=== PATIENT | female | born 1950 | race American Indian/Alaskan Native ===

== ENCOUNTER 2017-09-06 07:02 | Inpatient (IN) | payer OTHER, MEDICARE ==
[2017-09-06 08:30] LABS: Basophils % (Auto) 0.9 % (0.0-1.8); Eosinophils % (Auto) 1.7 % (0.0-4.3); Hematocrit 35.7 % (30.3-42.9); Hemoglobin 11.8 gm/dl (10.1-14.3); Mean Corpuscular HGB Conc 33 % (30-34); Mean Corpuscular Hemoglobin 31 pg (28-32); Mean Corpuscular Volume 94 fl (79-97); Platelet Count 200 K/mm3 (140-440); Red Cell Distribution Width 15.8 % (13.2-15.2); White Blood Count 3.1 K/mm3 (4.5-11.0)
--- NOTE | 2017-09-06 08:43 | Emergency Department Report ---
ED General Adult HPI - General Chief complaint: Abdominal Pain Stated complaint: ABDOMINAL PAIN Time Seen by Provider: 09/06/17 08:34 Source: patient Mode of arrival: Wheelchair Limitations: No Limitations - History of Present Illness Initial comments: Patient is a 67-year-old female who gets dialysis Wednesday, Wednesday and Fridays who presents with right-sided pain. Patient states that she missed her last 2 dialysis treatments. She was going out of town however her dialysis center canceled her treatments. Patient states that her chest and abdomen hurt it as a 5 out 10 as an achy type of pain as intermittent and it doesn't radiate nothing makes it better or worse. She denies having any shortness of breath or any nausea or vomiting. Patient has a right Port-A-Cath. Her acute care occupational therapist is at [facility] Dr. Villalba. - Related Data Allergies Allergy/AdvReac Type Severity Reaction Status Date / Time No Known Allergies Allergy Verified 09/06/17 07:54 ED Review of Systems ROS: Stated complaint: ABDOMINAL PAIN Other details as noted in HPI Constitutional: denies: chills, fever Eyes: denies: eye pain, eye discharge, vision change ENT: denies: ear pain, throat pain Respiratory: denies: cough, shortness of breath, wheezing Cardiovascular: chest pain. denies: palpitations Endocrine: no symptoms reported Gastrointestinal: abdominal pain. denies: nausea, diarrhea Genitourinary: denies: urgency, dysuria, discharge Musculoskeletal: myalgia. denies: back pain, joint swelling, arthralgia Skin: denies: rash, lesions Neurological: denies: headache, weakness, paresthesias Psychiatric: denies: anxiety, depression Hematological/Lymphatic: denies: easy bleeding, easy bruising ED Past Medical Hx - Past Medical History Previous Medical History?: Yes Hx Hypertension: Yes Hx Diabetes: Yes Hx Renal Disease: Yes - Surgical History Past Surgical History?: Yes Additional Surgical History: left arm - Social History Smoking Status: Never Smoker Substance Use Type: None ED Physical Exam - General Limitations: No Limitations General appearance: alert, in no apparent distress - Head Head exam: Present: atraumatic, normocephalic - Eye Eye exam: Present: normal appearance - ENT ENT exam: Present: mucous membranes moist - Neck Neck exam: Present: normal inspection - Respiratory Respiratory exam: Present: normal lung sounds bilaterally. Absent: respiratory distress - Cardiovascular Cardiovascular Exam: Present: other (right chest port ). Absent: systolic murmur, diastolic murmur, rubs, gallop - GI/Abdominal GI/Abdominal exam: Present: soft, normal bowel sounds - Extremities Exam Extremities exam: Present: normal inspection - Back Exam Back exam: Present: normal inspection - Neurological Exam Neurological exam: Present: alert, oriented X3 - Psychiatric Psychiatric exam: Present: normal affect, normal mood - Skin Skin exam: Present: warm, dry, intact, normal color. Absent: rash ED Course Vital Signs 09/06/17 09/06/17 09/06/17 07:47 08:52 08:53 Temperature 98.2 F 98.0 F Pulse Rate 63 61 Respiratory 16 16 16 Rate Blood Pressure 149/59 Blood Pressure 169/58 [Right] O2 Sat by Pulse 100 98 98 Oximetry ED Medical Decision Making - Lab Data Result diagrams: 09/06/17 08:11 09/06/17 15:44 Lab Results 09/06/17 09/06/17 09/06/17 Range/Units 08:02 08:11 08:11 WBC 3.1 L (4.5-11.0) K/mm3 RBC 3.80 (3.65-5.03) M/mm3 Hgb 11.8 (10.1-14.3) gm/dl Hct 35.7 (30.3-42.9) % MCV 94 (79-97) fl MCH 31 (28-32) pg MCHC 33 (30-34) % RDW 15.8 H (13.2-15.2) % Plt Count 200 (140-440) K/mm3 Lymph % (Auto) 31.5 (13.4-35.0) % [place] % (Auto) 9.2 H (0.0-7.3) % Eos % (Auto) 1.7 (0.0-4.3) % Baso % (Auto) 0.9 (0.0-1.8) % Lymph # 1.0 L (1.2-5.4) K/mm3 [place] # 0.3 (0.0-0.8) K/mm3 Eos # 0.1 (0.0-0.4) K/mm3 Baso # 0.0 (0.0-0.1) K/mm3 Seg Neutrophils % 56.7 (40.0-70.0) % Seg Neutrophils # 1.8 (1.8-7.7) K/mm3 Sodium 137 (137-145) mmol/L Potassium 6.2 H* (3.6-5.0) mmol/L Chloride 101.1 (98-107) mmol/L Carbon Dioxide 20 L (22-30) mmol/L Anion Gap 22 mmol/L BUN 102 H (7-17) mg/dL Creatinine 8.3 H (0.7-1.2) mg/dL Estimated GFR 6 ml/min BUN/Creatinine Ratio 12 % Glucose 108 H (65-100) mg/dL POC Glucose 112 H (70-105) Calcium 9.2 (8.4-10.2) mg/dL Total Bilirubin 0.20 (0.1-1.2) mg/dL AST 14 (5-40) units/L ALT 12 (7-56) units/L Alkaline Phosphatase 91 (35-129) units/L Total Protein 7.1 (6.3-8.2) g/dL Albumin 3.9 (3.9-5) g/dL Albumin/Globulin Ratio 1.2 % Lipase 96 H (13-60) units/L - EKG Data -: EKG Interpreted by Nd - EKG Data 09/06/17 16:29 EKG shows sinus rhythm left atrial enlargement and LVH T-wave abnormalities in inferior leads no ST segment elevation. No axis deviation. - Radiology Data Radiology results: report reviewed, image reviewed Chest x-ray: Shows No acute cardiopulmonary disease - Medical Decision Making Chief medical diagnosis: Hyperkalemia secondary to missed dialysis Differential medical diagnosis: Pneumonia, hyponatremia, non-STEMI EKG, IV insulin, calcium gluconate IV dextrose, albuterol, CBC, CMP and nephrology consult. Patient has hyperkalemia she has no EKG Changes I will admit patient to the hospitalist service and I have also consulted 's group due to patient needing emergent dialysis. Patient has a life-threatening condition and will need to be admitted to the hospital. Discussed with patient and she agrees with plan. Critical Care Time: Yes (50) Critical care time in (mins) excluding proc time.: 50 Critical care attestation.: If time is entered above; I have spent that time in minutes in the direct care of this critically ill patient, excluding procedure time. critcal care time spent at patient's bedside 35 minutes Critical care time spent with consultants 10 minutes Critical care time spent looking over lab findings 5 minutes critical care time spent with patient's family 0 minutes Critical care time spent with looking over old medical records 0 minutes ED Disposition Clinical Impression: Hyperkalemia, ESRD (end stage renal disease), Myalgia, Elevated troponin Chest pain Qualifiers: Chest pain type: unspecified Qualified Code(s): R07.9 - Chest pain, unspecified Abdominal pain Qualifiers: Abdominal location: generalized Qualified Code(s): R10.84 - Generalized abdominal pain Disposition: OP ADMIT IP TO THIS HOSP Is pt being admited?: Yes Does the pt Need Aspirin: No Condition: Stable Instructions: Chest Pain (ED), Abdominal Pain (ED) Referrals: PRIMARY CARE,MD [Primary Care Provider] - 3-5 Days
[2017-09-06 08:48] LABS: Albumin 3.9 g/dL (3.9-5); Albumin/Globulin Ratio 1.2 %; Bilirubin,Total 0.2 mg/dL (0.1-1.2); Calcium 9.2 mg/dL (8.4-10.2); Chloride 101.1 mmol/L (98-107); Total Protein 7.1 g/dL (6.3-8.2)
[2017-09-06 08:57] LABS: Potassium 6.2 mmol/L (3.6-5.0)
[2017-09-06] MEDS ORDERED: D50W (25GM) Vial IV ONE (09:06)
[2017-09-06] MEDS ORDERED: CALCIUM GLUCONATE 2,000 MG in NACL 0.9% 100 ML IV ONE (10:00)
[2017-09-06] MEDS ORDERED: SUBLIMAZE IV ONE (11:09)
--- NOTE | 2017-09-06 13:33 | XRay Report ---
Portable chest: Pain. There is a vas catheter entering the right jugular vein with tips in the SVC. There is a vascular clip located in the soft tissues of the proximal left arm. The heart is normal in size. The lungs are clear with no vascular congestion. No prior study for comparison. Impression: No acute findings.
[2017-09-06] MEDS ORDERED: PROVENTIL IH ONE ×2 (14:42→16:18)
[2017-09-06] MEDS ORDERED: D50W (25GM) Syringe IV ONE (16:20)
--- NOTE | 2017-09-06 16:41 | Consultation ---
History of Present Illness - Reason for Consult Consult date: 09/06/17 end stage renal disease Requesting physician: SAI TIDWELL - History of Present Illness Patient is a 67-year-old female who gets dialysis Wednesday, Wednesday and Fridays who presents with right-sided pain. Patient states that she missed her last 2 dialysis treatments. She was going out of town however her dialysis center canceled her treatments. Patient states that her chest and abdomen hurt it as a 5 out 10 as an achy type of pain as intermittent and it doesn't radiate nothing makes it better or worse. She denies having any shortness of breath or any nausea or vomiting. Patient has a right Port-A-Cath. She undergoes hemodialysis at [facility] under our care. She however missed her last 2 treatments as she was out of town. Patient states that there was some mixup in the dialysis arrangements that were made Past History Past Medical History: diabetes, dialysis, hypertension Past Surgical History: Other (history of creation of AV fistula) Social history: other (denies smoking or drinking) Family history: no significant family history Medications and Allergies Allergies Allergy/AdvReac Type Severity Reaction Status Date / Time No Known Allergies Allergy Verified 09/06/17 07:54 Active Meds: Active Medications Dextrose (D50w (25gm) Syringe) 50 ml IV ONCE ONE Stop: 09/06/17 16:21 Heparin Sodium (Porcine) (Heparin) 5,000 unit SUB-Q Q12HR DAYAMI Review of Systems All systems: negative (negative except as noted above) Exam - Vital Signs Vital signs: Vital Signs Temp Pulse Resp BP Pulse Ox 98.2 F 63 16 149/59 100 09/06/17 07:47 09/06/17 07:47 09/06/17 07:47 09/06/17 07:47 09/06/17 07:47 - General Appearance General appearance: well-developed, well-nourished, appears stated age EENT: PERRL, mucous membranes moist Neck: Present: neck supple, trachea midline, Other (right IJ PermCath in place) . Absent: JVD/HJR, Masses Respiratory: Clear to Ascultation Heart: regular, normal heart rate Gastrointestinal: Present: normal, normoactive bowel sounds Integumentary: no rash, other (no edema. AV fistula in her left upper arm. Good bruit and thrill. Covered with a dressing) Results - Lab Results 09/06/17 08:11 09/06/17 15:44 Most recent lab results Calcium 9.2 mg/dL (8.4-10.2) 09/06/17 08:11 Assessment and Plan Impression * End-stage renal disease on maintenance hemodialysis * Hyperkalemia * Hypertension * Diabetes * Anemia secondary to ESRD Recommendations * Shall arrange for hemodialysis as soon as possible * Medical management of hyperkalemia * Adjust diet and metastases for ESRD state * Epogen with dialysis * No IV, BP of any venipuncture access arm * Binders with diet * Avoid nephrotoxins * Thank you very much for the consultation. Shall follow along with you
--- NOTE | 2017-09-06 17:17 | History and Physical Report ---
History of Present Illness Chief complaint: chest pain and sob History of present illness: Patient is a 67-year-old female who gets dialysis Wednesday, Wednesday and Fridays who presents with right-sided chest pain. Patient states that she missed her last 2 dialysis treatments. She went out of town for . Says was scheduled for dialysis with a dialysis center there. However there was an error with her paperwork and scheduling. Therefore she missed her last 2 dialysis sessions. She presents with chest pain in the right side, which is dull constant and shortness of breath. She states that this is typical way for her to feel when she misses dialysis, she has now been on dialysis for 1 year Past History Past Medical History: diabetes, dialysis, hypertension Past Surgical History: Other (history of creation of AV fistula) Social history: other (denies smoking or drinking) Family history: no significant family history Medications and Allergies Allergies Allergy/AdvReac Type Severity Reaction Status Date / Time No Known Allergies Allergy Verified 09/06/17 07:54 Home Medications Medication Instructions Recorded Confirmed Last Taken Type Amlodipine Besylate/Benazepril 1 each PO DAILY 09/06/17 09/06/17 09/05/17 History [Amlodipine-Benazepril 10-20 mg] Loratadine [Claritin] 10 mg PO DAILY 09/06/17 09/06/17 09/05/17 History Active Meds: Active Medications Heparin Sodium (Porcine) (Heparin) 5,000 unit SUB-Q Q12HR DAYAMI Review of Systems All systems: negative Constitutional: fatigue Cardiovascular: chest pain Exam - Constitutional Vitals: Temp Pulse Resp BP Pulse Ox 98.0 F 61 16 169/58 98 09/06/17 08:52 09/06/17 08:52 09/06/17 08:53 09/06/17 08:52 09/06/17 08:53 General appearance: Present: no acute distress, well-nourished - EENT Eyes: Present: PERRL ENT: hearing intact, clear oral mucosa - Neck Neck: Present: supple, normal ROM - Respiratory Respiratory effort: normal Respiratory: bilateral: CTA - Cardiovascular Heart Sounds: Present: S1 & S2. Absent: rub, click - Extremities Extremities: pulses symmetrical, No edema Peripheral Pulses: within normal limits - Abdominal General gastrointestinal: Present: soft, non-tender, non-distended, normal bowel sounds Female genitourinary: Present: normal - Integumentary Integumentary: Present: clear, warm, dry - Musculoskeletal Musculoskeletal: gait normal, strength equal bilaterally - Psychiatric Psychiatric: appropriate mood/affect, intact judgment & insight - Neurologic Neurologic: CNII-XII intact, moves all extremities Results - Labs CBC & Chem 7: 09/06/17 08:11 09/06/17 15:44 Labs: Laboratory Last Values WBC 3.1 K/mm3 (4.5-11.0) L 09/06/17 08:11 RBC 3.80 M/mm3 (3.65-5.03) 09/06/17 08:11 Hgb 11.8 gm/dl (10.1-14.3) 09/06/17 08:11 Hct 35.7 % (30.3-42.9) 09/06/17 08:11 MCV 94 fl (79-97) 09/06/17 08:11 MCH 31 pg (28-32) 09/06/17 08:11 MCHC 33 % (30-34) 09/06/17 08:11 RDW 15.8 % (13.2-15.2) H 09/06/17 08:11 Plt Count 200 K/mm3 (140-440) 09/06/17 08:11 Lymph % (Auto) 31.5 % (13.4-35.0) 09/06/17 08:11 [place] % (Auto) 9.2 % (0.0-7.3) H 09/06/17 08:11 Eos % (Auto) 1.7 % (0.0-4.3) 09/06/17 08:11 Baso % (Auto) 0.9 % (0.0-1.8) 09/06/17 08:11 Lymph # 1.0 K/mm3 (1.2-5.4) L 09/06/17 08:11 [place] # 0.3 K/mm3 (0.0-0.8) 09/06/17 08:11 Eos # 0.1 K/mm3 (0.0-0.4) 09/06/17 08:11 Baso # 0.0 K/mm3 (0.0-0.1) 09/06/17 08:11 Seg Neutrophils % 56.7 % (40.0-70.0) 09/06/17 08:11 Seg Neutrophils # 1.8 K/mm3 (1.8-7.7) 09/06/17 08:11 Sodium 137 mmol/L (137-145) 09/06/17 08:11 Potassium 6.6 mmol/L (3.6-5.0) H* 09/06/17 15:44 Chloride 101.1 mmol/L (98-107) 09/06/17 08:11 Carbon Dioxide 20 mmol/L (22-30) L 09/06/17 08:11 Anion Gap 22 mmol/L 09/06/17 08:11 BUN 102 mg/dL (7-17) H 09/06/17 08:11 Creatinine 8.3 mg/dL (0.7-1.2) H 09/06/17 08:11 Estimated GFR 6 ml/min 09/06/17 08:11 BUN/Creatinine Ratio 12 % 09/06/17 08:11 Glucose 108 mg/dL (65-100) H 09/06/17 08:11 POC Glucose 112 (70-105) H 09/06/17 08:02 Calcium 9.2 mg/dL (8.4-10.2) 09/06/17 08:11 Total Bilirubin 0.20 mg/dL (0.1-1.2) 09/06/17 08:11 AST 14 units/L (5-40) 09/06/17 08:11 ALT 12 units/L (7-56) 09/06/17 08:11 Alkaline Phosphatase 91 units/L (35-129) 09/06/17 08:11 Troponin T 0.056 ng/mL (0.00-0.029) H 09/06/17 15:44 Total Protein 7.1 g/dL (6.3-8.2) 09/06/17 08:11 Albumin 3.9 g/dL (3.9-5) 09/06/17 08:11 Albumin/Globulin Ratio 1.2 % 09/06/17 08:11 Triglycerides 183 mg/dL (2-149) H 09/06/17 15:44 Cholesterol 201 mg/dL (50-199) H 09/06/17 15:44 LDL Cholesterol Direct 110 mg/dL (50-130) 09/06/17 15:44 HDL Cholesterol 55 mg/dL (40-59) 09/06/17 15:44 Cholesterol/HDL Ratio 3.65 % 09/06/17 15:44 Lipase 96 units/L (13-60) H 09/06/17 08:11 - Imaging and Cardiology Chest x-ray: image reviewed (no acute findings) Assessment and Plan Assessment and plan: 67F who missed two HD sessions who shows up with CP and hyperkalemia Hyperkalemia Has a medically treated, patient is to go for dialysis today, nephrology input appreciated End-stage renal disease Continue hemodialysis per nephrology Hypertensive urgency IV when necessary blood pressure medications, restart home medications -Hopefully blood pressure should improve after dialysis Diabetes Sliding scale insulin Atypical chest pain Was likely due to uremia and hyperkalemia and hypertensive urgency Has now resolved, outpatient stress test as patient has not had one recently DVT prophylaxis Heparin subcutaneous
[2017-09-06] MEDS ORDERED: APRESOLINE IV PRN (17:18)
[2017-09-06] MEDS ORDERED: MILK OF MAGNESIA PO PRN (17:20)
[2017-09-06] MEDS ORDERED: DULCOLAX PR PRN (17:20)
[2017-09-06] MEDS ORDERED: ZOFRAN IV PRN (17:20)
[2017-09-06] MEDS ORDERED: CATHFLO IV STA (20:10)
[2017-09-06] MEDS ORDERED: WATER FOR INJ (PF) 10 ML ONE (20:16)
[2017-09-06] MEDS ORDERED: CATHFLO ONE (20:16)
[2017-09-06] MEDS ORDERED: NACL 0.9 (PRIMING MACHINE ONLY DIALYSIS) MC ONE ×2 (20:29→22:24)
[2017-09-06] MEDS ORDERED: HEPARIN IV PRN (23:22)
[2017-09-07] MEDS: HEPARIN SUB-Q SCH ×3 (01:49→21:00)
--- NOTE | 2017-09-07 08:16 | Progress Note ---
<CARLEYMAISHA CURTIS - Last Filed: 09/07/17 16:08> Assessment and Plan Assessment and plan: Patient is a 67-year-old female who gets dialysis Wednesday, Wednesday and Fridays who presents with right-sided chest pain. End-stage renal disease on dialysis Patient will have urgent dialysis today Nephrology consulted Hypertension urgency Optimize home antihypertensive meds IV hydralazine for SBP>160 Closely monitor blood pressure Diabetes mellitus Accu-Chek before meals and at bedtime Sliding scale insulin/NovoLog ADA carbohydrate consistent diet Hyperkalemia Patient has hemodialysis today that will correct it Closely monitor electrolytes. Atypical chest pain Was likely due to uremia and hyperkalemia and hypertensive urgency Has now resolved, outpatient stress test as patient has not had one recently DVT prophylaxis Heparin subcutaneous History Interval history: She denies having pain at present. Labs and nursing notes reviewed. Hospitalist Physical - Constitutional Vitals: Temp Pulse Resp BP Pulse Ox 98.2 F 74 18 152/68 99 09/07/17 04:34 09/07/17 04:34 09/07/17 04:34 09/07/17 04:34 09/07/17 04:34 General appearance: Present: no acute distress, well-nourished - EENT Eyes: Present: PERRL ENT: hearing intact - Neck Neck: Present: supple - Respiratory Respiratory effort: normal Respiratory: bilateral: CTA - Cardiovascular Rhythm: regular Heart Sounds: Present: S1 & S2 - Abdominal General gastrointestinal: soft, non-tender - Integumentary Integumentary: Present: clear, warm, dry - Psychiatric Psychiatric: appropriate mood/affect - Neurologic Neurologic: moves all extremities - Allied Health Allied health notes reviewed: nursing Results - Labs CBC & Chem 7: 09/06/17 08:11 09/06/17 15:44 Labs: Laboratory Last Values WBC 3.1 K/mm3 (4.5-11.0) L 09/06/17 08:11 RBC 3.80 M/mm3 (3.65-5.03) 09/06/17 08:11 Hgb 11.8 gm/dl (10.1-14.3) 09/06/17 08:11 Hct 35.7 % (30.3-42.9) 09/06/17 08:11 MCV 94 fl (79-97) 09/06/17 08:11 MCH 31 pg (28-32) 09/06/17 08:11 MCHC 33 % (30-34) 09/06/17 08:11 RDW 15.8 % (13.2-15.2) H 09/06/17 08:11 Plt Count 200 K/mm3 (140-440) 09/06/17 08:11 Lymph % (Auto) 31.5 % (13.4-35.0) 09/06/17 08:11 [place] % (Auto) 9.2 % (0.0-7.3) H 09/06/17 08:11 Eos % (Auto) 1.7 % (0.0-4.3) 09/06/17 08:11 Baso % (Auto) 0.9 % (0.0-1.8) 09/06/17 08:11 Lymph # 1.0 K/mm3 (1.2-5.4) L 09/06/17 08:11 [place] # 0.3 K/mm3 (0.0-0.8) 09/06/17 08:11 Eos # 0.1 K/mm3 (0.0-0.4) 09/06/17 08:11 Baso # 0.0 K/mm3 (0.0-0.1) 09/06/17 08:11 Seg Neutrophils % 56.7 % (40.0-70.0) 09/06/17 08:11 Seg Neutrophils # 1.8 K/mm3 (1.8-7.7) 09/06/17 08:11 Sodium 137 mmol/L (137-145) 09/06/17 08:11 Potassium 6.6 mmol/L (3.6-5.0) H* 09/06/17 15:44 Chloride 101.1 mmol/L (98-107) 09/06/17 08:11 Carbon Dioxide 20 mmol/L (22-30) L 09/06/17 08:11 Anion Gap 22 mmol/L 09/06/17 08:11 BUN 102 mg/dL (7-17) H 09/06/17 08:11 Creatinine 8.3 mg/dL (0.7-1.2) H 09/06/17 08:11 Estimated GFR 6 ml/min 09/06/17 08:11 BUN/Creatinine Ratio 12 % 09/06/17 08:11 Glucose 108 mg/dL (65-100) H 09/06/17 08:11 POC Glucose 112 (70-105) H 09/06/17 08:02 Calcium 9.2 mg/dL (8.4-10.2) 09/06/17 08:11 Total Bilirubin 0.20 mg/dL (0.1-1.2) 09/06/17 08:11 AST 14 units/L (5-40) 09/06/17 08:11 ALT 12 units/L (7-56) 09/06/17 08:11 Alkaline Phosphatase 91 units/L (35-129) 09/06/17 08:11 Troponin T 0.056 ng/mL (0.00-0.029) H 09/06/17 15:44 Total Protein 7.1 g/dL (6.3-8.2) 09/06/17 08:11 Albumin 3.9 g/dL (3.9-5) 09/06/17 08:11 Albumin/Globulin Ratio 1.2 % 09/06/17 08:11 Triglycerides 183 mg/dL (2-149) H 09/06/17 15:44 Cholesterol 201 mg/dL (50-199) H 09/06/17 15:44 LDL Cholesterol Direct 110 mg/dL (50-130) 09/06/17 15:44 HDL Cholesterol 55 mg/dL (40-59) 09/06/17 15:44 Cholesterol/HDL Ratio 3.65 % 09/06/17 15:44 Lipase 96 units/L (13-60) H 09/06/17 08:11 <FARAZ JOHNSTON E - Last Filed: 09/07/17 17:11> Assessment and Plan Assessment and plan: I saw and evaluated the patient. I agree with the findings and the plan of care as documented in the Nurse Practitioner's~note, with the following corrections and additions. Discussed with patient. multiple social issues, apparently has not been going to dialysis due to social issues, case management and school social worker assisting. Hospitalist Physical - Constitutional Vitals: Temp Pulse Resp BP Pulse Ox 97.4 F L 68 18 140/62 100 09/07/17 07:55 09/07/17 13:07 09/07/17 07:55 09/07/17 13:07 09/07/17 13:07 Results - Labs CBC & Chem 7: 09/06/17 08:11 09/06/17 15:44 Labs: Laboratory Last Values WBC 3.1 K/mm3 (4.5-11.0) L 09/06/17 08:11 RBC 3.80 M/mm3 (3.65-5.03) 09/06/17 08:11 Hgb 11.8 gm/dl (10.1-14.3) 09/06/17 08:11 Hct 35.7 % (30.3-42.9) 09/06/17 08:11 MCV 94 fl (79-97) 09/06/17 08:11 MCH 31 pg (28-32) 09/06/17 08:11 MCHC 33 % (30-34) 09/06/17 08:11 RDW 15.8 % (13.2-15.2) H 09/06/17 08:11 Plt Count 200 K/mm3 (140-440) 09/06/17 08:11 Lymph % (Auto) 31.5 % (13.4-35.0) 09/06/17 08:11 [place] % (Auto) 9.2 % (0.0-7.3) H 09/06/17 08:11 Eos % (Auto) 1.7 % (0.0-4.3) 09/06/17 08:11 Baso % (Auto) 0.9 % (0.0-1.8) 09/06/17 08:11 Lymph # 1.0 K/mm3 (1.2-5.4) L 09/06/17 08:11 [place] # 0.3 K/mm3 (0.0-0.8) 09/06/17 08:11 Eos # 0.1 K/mm3 (0.0-0.4) 09/06/17 08:11 Baso # 0.0 K/mm3 (0.0-0.1) 09/06/17 08:11 Seg Neutrophils % 56.7 % (40.0-70.0) 09/06/17 08:11 Seg Neutrophils # 1.8 K/mm3 (1.8-7.7) 09/06/17 08:11 Sodium 137 mmol/L (137-145) 09/06/17 08:11 Potassium 6.6 mmol/L (3.6-5.0) H* 09/06/17 15:44 Chloride 101.1 mmol/L (98-107) 09/06/17 08:11 Carbon Dioxide 20 mmol/L (22-30) L 09/06/17 08:11 Anion Gap 22 mmol/L 09/06/17 08:11 BUN 102 mg/dL (7-17) H 09/06/17 08:11 Creatinine 8.3 mg/dL (0.7-1.2) H 09/06/17 08:11 Estimated GFR 6 ml/min 09/06/17 08:11 BUN/Creatinine Ratio 12 % 09/06/17 08:11 Glucose 108 mg/dL (65-100) H 09/06/17 08:11 POC Glucose 144 (70-105) H 09/07/17 07:45 Calcium 9.2 mg/dL (8.4-10.2) 09/06/17 08:11 Total Bilirubin 0.20 mg/dL (0.1-1.2) 09/06/17 08:11 AST 14 units/L (5-40) 09/06/17 08:11 ALT 12 units/L (7-56) 09/06/17 08:11 Alkaline Phosphatase 91 units/L (35-129) 09/06/17 08:11 Troponin T 0.056 ng/mL (0.00-0.029) H 09/06/17 15:44 Total Protein 7.1 g/dL (6.3-8.2) 09/06/17 08:11 Albumin 3.9 g/dL (3.9-5) 09/06/17 08:11 Albumin/Globulin Ratio 1.2 % 09/06/17 08:11 Triglycerides 183 mg/dL (2-149) H 09/06/17 15:44 Cholesterol 201 mg/dL (50-199) H 09/06/17 15:44 LDL Cholesterol Direct 110 mg/dL (50-130) 09/06/17 15:44 HDL Cholesterol 55 mg/dL (40-59) 09/06/17 15:44 Cholesterol/HDL Ratio 3.65 % 09/06/17 15:44 Lipase 96 units/L (13-60) H 09/06/17 08:11 Urine Color Yellow (Yellow) 09/07/17 14:20 Urine Turbidity Clear (Clear) 09/07/17 14:20 Urine pH 6.0 (5.0-7.0) 09/07/17 14:20 Ur Specific [place] 1.013 (1.003-1.030) 09/07/17 14:20 Urine Protein 100 mg/dl mg/dL (Negative) 09/07/17 14:20 Urine Glucose (UA) 50 mg/dL (Negative) 09/07/17 14:20 Urine Ketones Neg mg/dL (Negative) 09/07/17 14:20 Urine Blood Neg (Negative) 09/07/17 14:20 Urine Nitrite Neg (Negative) 09/07/17 14:20 Urine Bilirubin Neg (Negative) 09/07/17 14:20 Urine Urobilinogen < 2.0 mg/dL (<2.0) 09/07/17 14:20 Ur Leukocyte Esterase Neg (Negative) 09/07/17 14:20 Urine WBC (Auto) 1.0 /HPF (0.0-6.0) 09/07/17 14:20 Urine RBC (Auto) 1.0 /HPF (0.0-6.0) 09/07/17 14:20 U Epithel Cells (Auto) < 1.0 /HPF (0-13.0) 09/07/17 14:20 Urine Bacteria (Auto) 1+ /HPF (Negative) 09/07/17 14:20 Urine Mucus Few /HPF 09/07/17 14:20
[2017-09-07] MEDS: CLARITIN PO SCH (09:14)
[2017-09-07] MEDS: NORVASC PO SCH (09:15)
--- NOTE | 2017-09-07 09:35 | Progress Note ---
Assessment and Plan Impression * End-stage renal disease on maintenance hemodialysis * Hyperkalemia * Hypertension * Diabetes * Anemia secondary to ESRD Recommendations * Patient had hemodialysis yesterday. Required activities as her perm catheter did not function properly * Today's labs are still pending. Shall plan for additional dialysis treatment today as her numbers were quite high yesterday * Adjust diet and metastases for ESRD state * Epogen with dialysis * No IV, BP of any venipuncture access arm * Binders with diet * Avoid nephrotoxins * Okay to discharge patient home after dialysis today Subjective Date of service: 09/07/17 Interval history: Patient feels better today. Her cough is improved. Denies any nausea or vomiting Objective - Vital Signs Vital signs: Vital Signs - 12hr 09/06/17 09/06/17 09/06/17 21:45 22:00 22:15 Temperature Pulse Rate 67 70 69 Respiratory Rate Blood Pressure 154/88 159/83 158/81 Blood Pressure [Right] O2 Sat by Pulse Oximetry 09/06/17 09/06/17 09/06/17 22:30 22:45 23:00 Temperature Pulse Rate 70 70 85 Respiratory Rate Blood Pressure 135/73 130/63 118/62 Blood Pressure [Right] O2 Sat by Pulse Oximetry 09/06/17 09/06/17 09/06/17 23:15 23:30 23:45 Temperature Pulse Rate 79 79 71 Respiratory Rate Blood Pressure 132/69 144/80 154/76 Blood Pressure [Right] O2 Sat by Pulse Oximetry 09/07/17 09/07/17 09/07/17 00:00 00:15 01:10 Temperature 97.5 F L 97.3 F L Pulse Rate 72 69 68 Respiratory 18 16 Rate Blood Pressure 123/67 110/58 144/62 Blood Pressure [Right] O2 Sat by Pulse 100 Oximetry 09/07/17 09/07/17 09/07/17 01:25 04:34 07:44 Temperature 98.2 F Pulse Rate 70 74 69 Respiratory 18 Rate Blood Pressure 152/68 Blood Pressure [Right] O2 Sat by Pulse 99 100 Oximetry 09/07/17 07:55 Temperature 97.4 F L Pulse Rate 69 Respiratory 18 Rate Blood Pressure Blood Pressure 145/67 [Right] O2 Sat by Pulse 98 Oximetry - General Appearance General appearance: well-developed, well-nourished, appears stated age EENT: PERRL, mucous membranes moist Neck: no JVD, no thyromegaly, other (right IJ PermCath in place) Respiratory: Present: Clear to Ascultation Cardiology: regular, normal heart rate Gastrointestinal: normal, normoactive bowel sounds Integumentary: no rash, other (the fistula in her left upper arm. Covered with dressing. Bruit audible. No edema) - Lab 09/06/17 08:11 09/06/17 15:44 Most recent lab results Calcium 9.2 mg/dL (8.4-10.2) 09/06/17 08:11
[2017-09-07] MEDS ORDERED: NACL 0.9% 100 ML IV PRN (10:00)
[2017-09-07 14:43] LABS: Bacteria,Urine 1+ /HPF (Negative); Bilirubin,Urine NEG (Negative); Blood,Urine NEG (Negative); Ketones,Urine NEG (Negative); Leukocyte Esterase,Urine NEG (Negative); Mucus,Urine FEW /HPF; Nitrite,Urine NEG (Negative); Urobilinogen,Urine < 2.0 mg/dL (<2.0)
--- NOTE | 2017-09-07 16:03 | Discharge Summary ---
<FARAZ JOHNSTON - Last Filed: 09/09/17 16:55> Providers - Providers Date of Admission: 09/06/17 16:21 Attending physician: FARAZ JOHNSTON MD 09/06/17 15:07 Consult to Physician [CONS] Urgent Consulting Provider: MERCEDES BRADSHAW Reason For Exam: Hyperkalemia Notified:: Yes Primary care physician: EGG GATHERER Hospitalization Condition: Stable Disposition: DC-01 TO HOME OR SELFCARE Time spent for discharge: 35 mins Exam - Constitutional Vitals: Temp Pulse Resp BP Pulse Ox 98.5 F 80 18 137/66 98 09/09/17 08:38 09/09/17 10:38 09/09/17 08:38 09/09/17 10:38 09/08/17 23:44 Plan Activity: advance as tolerated, fall precautions Diet: renal Special Instructions: record daily weights, record daily BP diary Follow up with: HEIDE BANEGAS MD [Primary Care Provider] - 3-5 Days BRYANT DUNCAN MD [Staff Physician] - 7 Days Prescriptions: Cetirizine HCl [ZyrTEC] 10 mg PO DAILY #20 capsule <MAISHA COSBY - Last Filed: 09/09/17 19:57> Providers - Providers Date of Admission: 09/06/17 16:21 Attending physician: FARAZ JOHNSTON MD 09/06/17 15:07 Consult to Physician [CONS] Urgent Consulting Provider: MERCEDES BRADSHAW Reason For Exam: Hyperkalemia Notified:: Yes Primary care physician: EGG GATHERER Hospitalization Reason for admission: right-sided chest pain. Hospital course: Patient is a 67-year-old female who gets dialysis Wednesday, Wednesday and Fridays who presents with right-sided chest pain. Patient diagnosed with End- stage renal disease on dialysis, Hypertension urgency, Diabetes mellitus, Hyperkalemia and Atypical chest pain. She received emergent dialysis, during which excess fluid was removed, and her hyperkalemia corrected with HD, she was restarted on the rest of her meds. Patient is clinically improved no chest discomfort at present time. Patient advised to follow-up with her primary care provider. Discharge Diagnosed End-stage renal disease on dialysis Hypertension urgency Diabetes mellitus Hyperkalemia Atypical chest pain due to ERSD and hypertension urgency Time spent for discharge: 33 minutes Core Measure Documentation - Palliative Care Palliative Care/ Comfort Measures: Not Applicable - Core Measures Any of the following diagnoses?: none Exam - Constitutional Vitals: Temp Pulse Resp BP Pulse Ox 97.4 F L 68 18 140/62 100 09/07/17 07:55 09/07/17 13:07 09/07/17 07:55 09/07/17 13:07 09/07/17 13:07 General appearance: Present: no acute distress - EENT Eyes: Present: PERRL ENT: hearing intact - Neck Neck: Present: supple - Respiratory Respiratory effort: normal Respiratory: bilateral: CTA - Cardiovascular Rhythm: regular Heart Sounds: Present: S1 & S2 - Abdominal General gastrointestinal: Present: soft, non-tender Female genitourinary: Present: deferred - Rectal Rectal Exam: deferred - Integumentary Integumentary: Present: clear, warm, dry - Musculoskeletal Musculoskeletal: strength equal bilaterally - Psychiatric Psychiatric: appropriate mood/affect - Neurologic Neurologic: moves all extremities - Allied Health Allied health notes reviewed: nursing Plan Activity: advance as tolerated, fall precautions
[2017-09-07] MEDS ORDERED: HEPARIN ONE (17:36)
[2017-09-07 18:03] LABS: Calcium 7.8 mg/dL (8.4-10.2); Chloride 90.6 mmol/L (98-107)
[2017-09-07 18:10] LABS: Potassium 2.9 mmol/L (3.6-5.0)
[2017-09-07] MEDS ORDERED: NACL 0.9 (PRIMING MACHINE ONLY DIALYSIS) MC ONE (18:45)
[2017-09-07] MEDS: TYLENOL PO PRN (20:55)
[2017-09-07 21:32] LABS: Chloride 90.6 mmol/L (98-107); Potassium 4.3 mmol/L (3.6-5.0)
[2017-09-08 07:27] LABS: Calcium 8.1 mg/dL (8.4-10.2); Chloride 95.5 mmol/L (98-107); Potassium 4.8 mmol/L (3.6-5.0)
[2017-09-08] MEDS: NORVASC PO SCH (09:48)
[2017-09-08] MEDS: HEPARIN SUB-Q SCH ×2 (09:48→22:52)
[2017-09-08] MEDS: CLARITIN PO SCH (09:48)
[2017-09-08] MEDS: TYLENOL PO PRN ×2 (09:50→14:57)
--- NOTE | 2017-09-08 12:14 | Progress Note ---
Assessment and Plan Impression * End-stage renal disease on maintenance hemodialysis * Hyperkalemia * Hypertension * Diabetes * Anemia secondary to ESRD Recommendations * Patient had hemodialysis yesterday. * Her electrolytes and volume status are acceptable today. No need for hemodialysis again today * Shall plan to keep her on her outpatient days as Wednesday's, Wednesday's and Wednesday's * Epogen with dialysis * No IV, BP of any venipuncture access arm * Binders with diet * Avoid nephrotoxins Subjective Date of service: 09/08/17 Interval history: Patient feels better this morning. Her cough has not resolved. Denies any shortness of breath. Objective - Vital Signs Vital signs: Vital Signs - 12hr 09/08/17 09/08/17 05:19 07:43 Temperature 98.6 F 98.4 F Pulse Rate 67 72 Respiratory 19 18 Rate Blood Pressure 102/46 111/58 O2 Sat by Pulse 99 99 Oximetry - General Appearance General appearance: well-developed, well-nourished, appears stated age EENT: PERRL, mucous membranes moist Neck: no JVD, no thyromegaly, no carotid bruit, supple, other (right IJ PermCath in place) Respiratory: Present: Clear to Ascultation Cardiology: regular, normal heart rate Gastrointestinal: normal, normoactive bowel sounds Integumentary: no rash, other (AV graft in her left upper arm. Good bruit and thrill) - Lab 09/06/17 08:11 09/08/17 06:12 Most recent lab results Calcium 8.1 mg/dL (8.4-10.2) L 09/08/17 06:12
--- NOTE | 2017-09-08 13:06 | Progress Note ---
<MAISHA COSBY - Last Filed: 09/08/17 16:12> Assessment and Plan Assessment and plan: Patient is a 67-year-old female who gets dialysis Wednesday, Wednesday and Fridays who presents with right-sided chest pain. End-stage renal disease on dialysis Patient schedule TTS for HD Managed by Nephrology Disposition patient was scheduled to go home today but she appealed her discharge. Hypertension urgency Optimize home antihypertensive meds IV hydralazine for SBP>160 Closely monitor blood pressure Diabetes mellitus Accu-Chek before meals and at bedtime Sliding scale insulin/NovoLog ADA carbohydrate consistent diet Hyperkalemia Resolved Closely monitor electrolytes. Atypical chest pain Resolved; currently denies any chest pain Most likely due to hypertensive urgency or ESRD DVT prophylaxis Heparin subcutaneous History Interval history: Patient denies chest pain, shortness of breath or dizziness. Labs and nursing notes reviewed. Hospitalist Physical - Constitutional Vitals: Temp Pulse Resp BP Pulse Ox 98.4 F 72 18 111/58 99 09/08/17 07:43 09/08/17 07:43 09/08/17 07:43 09/08/17 07:43 09/08/17 07:43 General appearance: Present: no acute distress, well-nourished - EENT Eyes: Present: PERRL ENT: hearing intact - Neck Neck: Present: supple - Respiratory Respiratory effort: normal Respiratory: bilateral: CTA - Cardiovascular Rhythm: regular Heart Sounds: Present: S1 & S2 - Abdominal General gastrointestinal: soft, non-tender - Integumentary Integumentary: Present: clear, warm, dry - Psychiatric Psychiatric: appropriate mood/affect - Neurologic Neurologic: moves all extremities - Allied Health Allied health notes reviewed: nursing Results - Labs CBC & Chem 7: 09/06/17 08:11 09/08/17 06:12 Labs: Laboratory Last Values WBC 3.1 K/mm3 (4.5-11.0) L 09/06/17 08:11 RBC 3.80 M/mm3 (3.65-5.03) 09/06/17 08:11 Hgb 11.8 gm/dl (10.1-14.3) 09/06/17 08:11 Hct 35.7 % (30.3-42.9) 09/06/17 08:11 MCV 94 fl (79-97) 09/06/17 08:11 MCH 31 pg (28-32) 09/06/17 08:11 MCHC 33 % (30-34) 09/06/17 08:11 RDW 15.8 % (13.2-15.2) H 09/06/17 08:11 Plt Count 200 K/mm3 (140-440) 09/06/17 08:11 Lymph % (Auto) 31.5 % (13.4-35.0) 09/06/17 08:11 [place] % (Auto) 9.2 % (0.0-7.3) H 09/06/17 08:11 Eos % (Auto) 1.7 % (0.0-4.3) 09/06/17 08:11 Baso % (Auto) 0.9 % (0.0-1.8) 09/06/17 08:11 Lymph # 1.0 K/mm3 (1.2-5.4) L 09/06/17 08:11 [place] # 0.3 K/mm3 (0.0-0.8) 09/06/17 08:11 Eos # 0.1 K/mm3 (0.0-0.4) 09/06/17 08:11 Baso # 0.0 K/mm3 (0.0-0.1) 09/06/17 08:11 Seg Neutrophils % 56.7 % (40.0-70.0) 09/06/17 08:11 Seg Neutrophils # 1.8 K/mm3 (1.8-7.7) 09/06/17 08:11 Sodium 138 mmol/L (137-145) 09/08/17 06:12 Potassium 4.8 mmol/L (3.6-5.0) 09/08/17 06:12 Chloride 95.5 mmol/L (98-107) L 09/08/17 06:12 Carbon Dioxide 25 mmol/L (22-30) 09/08/17 06:12 Anion Gap 22 mmol/L 09/08/17 06:12 BUN 41 mg/dL (7-17) H 09/08/17 06:12 Creatinine 5.3 mg/dL (0.7-1.2) H 09/08/17 06:12 Estimated GFR 10 ml/min 09/08/17 06:12 BUN/Creatinine Ratio 8 % 09/08/17 06:12 Glucose 132 mg/dL (65-100) H 09/08/17 06:12 POC Glucose 136 (70-105) H 09/08/17 07:50 Calcium 8.1 mg/dL (8.4-10.2) L 09/08/17 06:12 Total Bilirubin 0.20 mg/dL (0.1-1.2) 09/06/17 08:11 AST 14 units/L (5-40) 09/06/17 08:11 ALT 12 units/L (7-56) 09/06/17 08:11 Alkaline Phosphatase 91 units/L (35-129) 09/06/17 08:11 Troponin T 0.056 ng/mL (0.00-0.029) H 09/06/17 15:44 Total Protein 7.1 g/dL (6.3-8.2) 09/06/17 08:11 Albumin 3.9 g/dL (3.9-5) 09/06/17 08:11 Albumin/Globulin Ratio 1.2 % 09/06/17 08:11 Triglycerides 183 mg/dL (2-149) H 09/06/17 15:44 Cholesterol 201 mg/dL (50-199) H 09/06/17 15:44 LDL Cholesterol Direct 110 mg/dL (50-130) 09/06/17 15:44 HDL Cholesterol 55 mg/dL (40-59) 09/06/17 15:44 Cholesterol/HDL Ratio 3.65 % 09/06/17 15:44 Lipase 96 units/L (13-60) H 09/06/17 08:11 Urine Color Yellow (Yellow) 09/07/17 14:20 Urine Turbidity Clear (Clear) 09/07/17 14:20 Urine pH 6.0 (5.0-7.0) 09/07/17 14:20 Ur Specific [place] 1.013 (1.003-1.030) 09/07/17 14:20 Urine Protein 100 mg/dl mg/dL (Negative) 09/07/17 14:20 Urine Glucose (UA) 50 mg/dL (Negative) 09/07/17 14:20 Urine Ketones Neg mg/dL (Negative) 09/07/17 14:20 Urine Blood Neg (Negative) 09/07/17 14:20 Urine Nitrite Neg (Negative) 09/07/17 14:20 Urine Bilirubin Neg (Negative) 09/07/17 14:20 Urine Urobilinogen < 2.0 mg/dL (<2.0) 09/07/17 14:20 Ur Leukocyte Esterase Neg (Negative) 09/07/17 14:20 Urine WBC (Auto) 1.0 /HPF (0.0-6.0) 09/07/17 14:20 Urine RBC (Auto) 1.0 /HPF (0.0-6.0) 09/07/17 14:20 U Epithel Cells (Auto) < 1.0 /HPF (0-13.0) 09/07/17 14:20 Urine Bacteria (Auto) 1+ /HPF (Negative) 09/07/17 14:20 Urine Mucus Few /HPF 09/07/17 14:20 <FARAZ JOHNSTON - Last Filed: 09/09/17 07:25> Assessment and Plan Assessment and plan: I saw and evaluated the patient. I agree with the findings and the plan of care as documented in the Nurse Practitioner's~note, with the following corrections and additions. Per patient does not have access to her home or medications and also needs to await son arriving from [place] tomorrow. she denies any chest pain, nausea, vomiting, diarrhea. Hospitalist Physical - Constitutional Vitals: Temp Pulse Resp BP Pulse Ox 98.2 F 73 17 129/56 98 09/08/17 23:44 09/08/17 23:44 09/08/17 23:44 09/08/17 23:44 09/08/17 23:44 Results - Labs CBC & Chem 7: 09/06/17 08:11 09/08/17 06:12 Labs: Laboratory Last Values WBC 3.1 K/mm3 (4.5-11.0) L 09/06/17 08:11 RBC 3.80 M/mm3 (3.65-5.03) 09/06/17 08:11 Hgb 11.8 gm/dl (10.1-14.3) 09/06/17 08:11 Hct 35.7 % (30.3-42.9) 09/06/17 08:11 MCV 94 fl (79-97) 09/06/17 08:11 MCH 31 pg (28-32) 09/06/17 08:11 MCHC 33 % (30-34) 09/06/17 08:11 RDW 15.8 % (13.2-15.2) H 09/06/17 08:11 Plt Count 200 K/mm3 (140-440) 09/06/17 08:11 Lymph % (Auto) 31.5 % (13.4-35.0) 09/06/17 08:11 [place] % (Auto) 9.2 % (0.0-7.3) H 09/06/17 08:11 Eos % (Auto) 1.7 % (0.0-4.3) 09/06/17 08:11 Baso % (Auto) 0.9 % (0.0-1.8) 09/06/17 08:11 Lymph # 1.0 K/mm3 (1.2-5.4) L 09/06/17 08:11 [place] # 0.3 K/mm3 (0.0-0.8) 09/06/17 08:11 Eos # 0.1 K/mm3 (0.0-0.4) 09/06/17 08:11 Baso # 0.0 K/mm3 (0.0-0.1) 09/06/17 08:11 Seg Neutrophils % 56.7 % (40.0-70.0) 09/06/17 08:11 Seg Neutrophils # 1.8 K/mm3 (1.8-7.7) 09/06/17 08:11 Sodium 138 mmol/L (137-145) 09/08/17 06:12 Potassium 4.8 mmol/L (3.6-5.0) 09/08/17 06:12 Chloride 95.5 mmol/L (98-107) L 09/08/17 06:12 Carbon Dioxide 25 mmol/L (22-30) 09/08/17 06:12 Anion Gap 22 mmol/L 09/08/17 06:12 BUN 41 mg/dL (7-17) H 09/08/17 06:12 Creatinine 5.3 mg/dL (0.7-1.2) H 09/08/17 06:12 Estimated GFR 10 ml/min 09/08/17 06:12 BUN/Creatinine Ratio 8 % 09/08/17 06:12 Glucose 132 mg/dL (65-100) H 09/08/17 06:12 POC Glucose 211 (70-105) H 09/08/17 21:13 Calcium 8.1 mg/dL (8.4-10.2) L 09/08/17 06:12 Total Bilirubin 0.20 mg/dL (0.1-1.2) 09/06/17 08:11 AST 14 units/L (5-40) 09/06/17 08:11 ALT 12 units/L (7-56) 09/06/17 08:11 Alkaline Phosphatase 91 units/L (35-129) 09/06/17 08:11 Troponin T 0.056 ng/mL (0.00-0.029) H 09/06/17 15:44 Total Protein 7.1 g/dL (6.3-8.2) 09/06/17 08:11 Albumin 3.9 g/dL (3.9-5) 09/06/17 08:11 Albumin/Globulin Ratio 1.2 % 09/06/17 08:11 Triglycerides 183 mg/dL (2-149) H 09/06/17 15:44 Cholesterol 201 mg/dL (50-199) H 09/06/17 15:44 LDL Cholesterol Direct 110 mg/dL (50-130) 09/06/17 15:44 HDL Cholesterol 55 mg/dL (40-59) 09/06/17 15:44 Cholesterol/HDL Ratio 3.65 % 09/06/17 15:44 Lipase 96 units/L (13-60) H 09/06/17 08:11 Urine Color Yellow (Yellow) 09/07/17 14:20 Urine Turbidity Clear (Clear) 09/07/17 14:20 Urine pH 6.0 (5.0-7.0) 09/07/17 14:20 Ur Specific [place] 1.013 (1.003-1.030) 09/07/17 14:20 Urine Protein 100 mg/dl mg/dL (Negative) 09/07/17 14:20 Urine Glucose (UA) 50 mg/dL (Negative) 09/07/17 14:20 Urine Ketones Neg mg/dL (Negative) 09/07/17 14:20 Urine Blood Neg (Negative) 09/07/17 14:20 Urine Nitrite Neg (Negative) 09/07/17 14:20 Urine Bilirubin Neg (Negative) 09/07/17 14:20 Urine Urobilinogen < 2.0 mg/dL (<2.0) 09/07/17 14:20 Ur Leukocyte Esterase Neg (Negative) 09/07/17 14:20 Urine WBC (Auto) 1.0 /HPF (0.0-6.0) 09/07/17 14:20 Urine RBC (Auto) 1.0 /HPF (0.0-6.0) 09/07/17 14:20 U Epithel Cells (Auto) < 1.0 /HPF (0-13.0) 09/07/17 14:20 Urine Bacteria (Auto) 1+ /HPF (Negative) 09/07/17 14:20 Urine Mucus Few /HPF 09/07/17 14:20
[2017-09-09 08:58] VITALS: BP 137/66
[2017-09-09] MEDS ORDERED: NACL 0.9% 100 ML IV PRN (10:10)
--- NOTE | 2017-09-09 10:10 | Progress Note ---
Assessment and Plan Impression * End-stage renal disease on maintenance hemodialysis * Hyperkalemia * Hypertension * Diabetes * Anemia secondary to ESRD Recommendations * Patient is clinically euvolemic and her hyperkalemia has been corrected . * Continue maintenance dialysis on Mondays, Wednesdays and Fridays * Epogen with dialysis * No IV, BP of any venipuncture access arm * Binders with diet * Avoid nephrotoxins * Add Zyrtec for her sinus symptoms Subjective Date of service: 09/09/17 Interval history: Patient is comfortable this morning. Her cough is better. She still however complains of some sinus drainage. No shortness of breath. Objective - Vital Signs Vital signs: Vital Signs - 12hr 09/08/17 09/09/17 23:44 08:38 Temperature 98.2 F 98.5 F Pulse Rate 73 Respiratory 17 18 Rate Blood Pressure 129/56 137/66 O2 Sat by Pulse 98 Oximetry - General Appearance General appearance: well-developed, well-nourished, appears stated age EENT: PERRL, mucous membranes moist Neck: no JVD, no thyromegaly, no carotid bruit, supple, other (right IJ PermCath in place) Respiratory: Present: Clear to Ascultation Cardiology: regular, normal heart rate, S1S2, no murmurs Gastrointestinal: normal, normoactive bowel sounds Integumentary: no rash, other (no edema. AV graft in the left upper arm. Good bruit and thrill) - Lab 09/06/17 08:11 09/08/17 06:12 Most recent lab results Calcium 8.1 mg/dL (8.4-10.2) L 09/08/17 06:12
[2017-09-09] MEDS: NORVASC PO SCH (10:38)
[2017-09-09] MEDS: HEPARIN SUB-Q SCH (10:39)
[2017-09-09] MEDS ORDERED: CLARITIN PO SCH (11:00)
--- NOTE | 2017-09-09 16:53 | Progress Note ---
History Interval history: Patient denies chest pain, shortness of breath or having any discomfort at present time. Hospitalist Physical - Constitutional Vitals: Temp Pulse Resp BP Pulse Ox 98.5 F 80 18 137/66 98 09/09/17 08:38 09/09/17 10:38 09/09/17 08:38 09/09/17 10:38 09/08/17 23:44 General appearance: Present: no acute distress, well-nourished - EENT Eyes: Present: PERRL ENT: hearing intact Results - Labs CBC & Chem 7: 09/06/17 08:11 09/08/17 06:12 Labs: Laboratory Last Values WBC 3.1 K/mm3 (4.5-11.0) L 09/06/17 08:11 RBC 3.80 M/mm3 (3.65-5.03) 09/06/17 08:11 Hgb 11.8 gm/dl (10.1-14.3) 09/06/17 08:11 Hct 35.7 % (30.3-42.9) 09/06/17 08:11 MCV 94 fl (79-97) 09/06/17 08:11 MCH 31 pg (28-32) 09/06/17 08:11 MCHC 33 % (30-34) 09/06/17 08:11 RDW 15.8 % (13.2-15.2) H 09/06/17 08:11 Plt Count 200 K/mm3 (140-440) 09/06/17 08:11 Lymph % (Auto) 31.5 % (13.4-35.0) 09/06/17 08:11 [place] % (Auto) 9.2 % (0.0-7.3) H 09/06/17 08:11 Eos % (Auto) 1.7 % (0.0-4.3) 09/06/17 08:11 Baso % (Auto) 0.9 % (0.0-1.8) 09/06/17 08:11 Lymph # 1.0 K/mm3 (1.2-5.4) L 09/06/17 08:11 [place] # 0.3 K/mm3 (0.0-0.8) 09/06/17 08:11 Eos # 0.1 K/mm3 (0.0-0.4) 09/06/17 08:11 Baso # 0.0 K/mm3 (0.0-0.1) 09/06/17 08:11 Seg Neutrophils % 56.7 % (40.0-70.0) 09/06/17 08:11 Seg Neutrophils # 1.8 K/mm3 (1.8-7.7) 09/06/17 08:11 Sodium 138 mmol/L (137-145) 09/08/17 06:12 Potassium 4.8 mmol/L (3.6-5.0) 09/08/17 06:12 Chloride 95.5 mmol/L (98-107) L 09/08/17 06:12 Carbon Dioxide 25 mmol/L (22-30) 09/08/17 06:12 Anion Gap 22 mmol/L 09/08/17 06:12 BUN 41 mg/dL (7-17) H 09/08/17 06:12 Creatinine 5.3 mg/dL (0.7-1.2) H 09/08/17 06:12 Estimated GFR 10 ml/min 09/08/17 06:12 BUN/Creatinine Ratio 8 % 09/08/17 06:12 Glucose 132 mg/dL (65-100) H 09/08/17 06:12 POC Glucose 156 (70-105) H 09/09/17 11:52 Calcium 8.1 mg/dL (8.4-10.2) L 09/08/17 06:12 Total Bilirubin 0.20 mg/dL (0.1-1.2) 09/06/17 08:11 AST 14 units/L (5-40) 09/06/17 08:11 ALT 12 units/L (7-56) 09/06/17 08:11 Alkaline Phosphatase 91 units/L (35-129) 09/06/17 08:11 Troponin T 0.056 ng/mL (0.00-0.029) H 09/06/17 15:44 Total Protein 7.1 g/dL (6.3-8.2) 09/06/17 08:11 Albumin 3.9 g/dL (3.9-5) 09/06/17 08:11 Albumin/Globulin Ratio 1.2 % 09/06/17 08:11 Triglycerides 183 mg/dL (2-149) H 09/06/17 15:44 Cholesterol 201 mg/dL (50-199) H 09/06/17 15:44 LDL Cholesterol Direct 110 mg/dL (50-130) 09/06/17 15:44 HDL Cholesterol 55 mg/dL (40-59) 09/06/17 15:44 Cholesterol/HDL Ratio 3.65 % 09/06/17 15:44 Lipase 96 units/L (13-60) H 09/06/17 08:11 Urine Color Yellow (Yellow) 09/07/17 14:20 Urine Turbidity Clear (Clear) 09/07/17 14:20 Urine pH 6.0 (5.0-7.0) 09/07/17 14:20 Ur Specific [place] 1.013 (1.003-1.030) 09/07/17 14:20 Urine Protein 100 mg/dl mg/dL (Negative) 09/07/17 14:20 Urine Glucose (UA) 50 mg/dL (Negative) 09/07/17 14:20 Urine Ketones Neg mg/dL (Negative) 09/07/17 14:20 Urine Blood Neg (Negative) 09/07/17 14:20 Urine Nitrite Neg (Negative) 09/07/17 14:20 Urine Bilirubin Neg (Negative) 09/07/17 14:20 Urine Urobilinogen < 2.0 mg/dL (<2.0) 09/07/17 14:20 Ur Leukocyte Esterase Neg (Negative) 09/07/17 14:20 Urine WBC (Auto) 1.0 /HPF (0.0-6.0) 09/07/17 14:20 Urine RBC (Auto) 1.0 /HPF (0.0-6.0) 09/07/17 14:20 U Epithel Cells (Auto) < 1.0 /HPF (0-13.0) 09/07/17 14:20 Urine Bacteria (Auto) 1+ /HPF (Negative) 09/07/17 14:20 Urine Mucus Few /HPF 09/07/17 14:20
== END 2017-09-09 19:30 | disposition home or self-care (01) | DRG 682 ==
LOC: ED 07:02 → 4A 16:21
PROVIDERS: ADMIT Internal Medicine; ATTEND Internal Medicine
PROC: 5A1D70Z Performance of Urinary Filtration, Intermittent, Less than 6 Hours Per Day (ICD-10-PCS; principal; 2017-09-06)
PROC: 5A1D70Z Performance of Urinary Filtration, Intermittent, Less than 6 Hours Per Day (ICD-10-PCS; 2017-09-07)
DX: I12.0 Hypertensive chronic kidney disease with stage 5 chronic kidney disease or end stage renal disease (principal); N18.6 End stage renal disease; I16.0 Hypertensive urgency; E87.5 Hyperkalemia; E11.22 Type 2 diabetes mellitus with diabetic chronic kidney disease; M79.1 Myalgia; D63.1 Anemia in chronic kidney disease
CPT/HCPCS: 36415; 71010; 80048; 80053; 80061; 81001; 82962; 83690; 84132; 84484; 85025; 93005; 93010; 96374; 96375; 96376; J0610; J1644; J1815; J2997; J3010; J7030

== ENCOUNTER 2018-10-16 03:09 | Inpatient (IN) | payer MEDICARE ==
[2018-10-16] MEDS ORDERED: NORCO 5/325 PO ONE (05:08)
[2018-10-16] MEDS ORDERED: ZOFRAN ODT PO ONE (05:10)
--- NOTE | 2018-10-16 07:45 | Emergency Department Report ---
ED Abdominal Pain HPI - General Chief Complaint: Abdominal Pain Stated Complaint: STOMACH AND BACK PAIN DUE TO COLON INFECTION Time Seen by Provider: 10/16/18 07:42 Source: patient, EMS Mode of arrival: Wheelchair Limitations: No Limitations - History of Present Illness Initial Comments: This is a 68 year old dialysis patient that is seen here yesterday for similar complaints. She was also thought perhaps to have colitis when she was recently hospitalized. A CT scan as per radiologist appears to be non-validating. The patient tells me that she has lower abdominal pain which she has has never really gone away. She stated that she felt too ill after yesterday's visit to go to dialysis as well as recommended. She believes that she is "dehydrated". She states that she has a lower abdominal and diffuse discomfort which is intermittent but persistent in nature for now over a week. She denies having any chronic opioid use requirement. However she does state that she wanted to get pain medication and Xanax from her doctor and [place] but he is out of the [place]. She gets dialyzed in [place]. I didn't ask her about her recent recurring choices to come to this facility. 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 Patient was found to be non-compliant and did not present to dialysis as per last ED visit plan on 10/14/18: Patient is a 68-year-old female who has a past medical history of his state renal disease on dialysis who is presenting with diffuse abdominal pain. Patient was admitted to the hospital on October 09 for presumed colitis. Patient states she never saw a vp product marketing while she was in the hospital she was discharged yesterday. Patient states she was unable to get any prescr iptions filled as of yet and her pain is worsened. Patient states pain is diffuse. Patient states 8 out of 10 in severity and sharp in nature. She says she has some intermittent crampiness as well. Patient denies fever nausea vomiting dysuria at this time. Patient states she does make urine still. - Related Data Home Medications Medication Instructions Recorded Confirmed Last Taken Loratadine [Claritin] 10 mg PO DAILY 09/06/17 10/09/18 09/05/17 Previous Rx's Medication Instructions Recorded Last Taken Type Cetirizine HCl [ZyrTEC] 10 mg PO DAILY #20 capsule 09/09/17 Unknown Rx Bisacodyl [Dulcolax tab] 10 mg PO QDAY PRN #30 tablet 12/09/17 Unknown Rx amLODIPine [Norvasc] 10 mg PO QDAY #30 tablet 12/09/17 Unknown Rx cloNIDine [Catapres] 0.1 mg PO Q12HR #60 tablet 12/09/17 Unknown Rx hydrALAZINE [Apresoline TAB] 100 mg PO TID #90 tab 12/09/17 Unknown Rx Bisacodyl [Dulcolax] 10 mg PO DAILY PRN #10 tab 10/13/18 Unknown Rx levoFLOXacin [Levaquin TAB] 500 mg PO Q48HR #2 tablet 10/13/18 Unknown Rx metroNIDAZOLE [Flagyl TAB] 500 mg PO Q8HR 3 Days tablet 10/13/18 Unknown Rx Allergies Allergy/AdvReac Type Severity Reaction Status Date / Time No Known Allergies Allergy Verified 09/06/17 07:54 ED Review of Systems Comment: All other systems reviewed and negative ED Past Medical Hx - Past Medical History Previous Medical History?: Yes Hx Hypertension: Yes Hx Diabetes: Yes Hx Renal Disease: Yes Hx HIV: No Additional medical history: Patient had some thickening of the wall of the descending colon on her CT scan was done on 10/09/2018. - Surgical History Past Surgical History?: Yes Additional Surgical History: left arm, left chest permacath - Social History Smoking Status: Never Smoker Substance Use Type: None - Medications Home Medications: Home Medications Medication Instructions Recorded Confirmed Last Taken Type Loratadine [Claritin] 10 mg PO DAILY 09/06/17 10/09/18 09/05/17 History Cetirizine HCl [ZyrTEC] 10 mg PO DAILY #20 capsule 09/09/17 10/09/18 Unknown Rx Bisacodyl [Dulcolax tab] 10 mg PO QDAY PRN #30 tablet 12/09/17 10/09/18 Unknown Rx amLODIPine [Norvasc] 10 mg PO QDAY #30 tablet 12/09/17 10/09/18 Unknown Rx cloNIDine [Catapres] 0.1 mg PO Q12HR #60 tablet 12/09/17 10/09/18 Unknown Rx hydrALAZINE [Apresoline TAB] 100 mg PO TID #90 tab 12/09/17 10/09/18 Unknown Rx Bisacodyl [Dulcolax] 10 mg PO DAILY PRN #10 tab 10/13/18 Unknown Rx levoFLOXacin [Levaquin TAB] 500 mg PO Q48HR #2 tablet 10/13/18 Unknown Rx metroNIDAZOLE [Flagyl TAB] 500 mg PO Q8HR 3 Days tablet 10/13/18 Unknown Rx ED Physical Exam - General Limitations: No Limitations General appearance: alert, in distress - Head Head exam: Present: atraumatic, normocephalic - Eye Eye exam: Present: normal appearance - ENT ENT exam: Present: mucous membranes moist - Neck Neck exam: Present: normal inspection - Respiratory Respiratory exam: Present: normal lung sounds bilaterally. Absent: respiratory distress, wheezes, rales, rhonchi - Cardiovascular Cardiovascular Exam: Present: regular rate, normal rhythm. Absent: systolic murmur, diastolic murmur, rubs, gallop - GI/Abdominal GI/Abdominal exam: Present: soft, tenderness (diffuse), normal bowel sounds. Absent: distended, guarding, rebound, rigid - Extremities Exam Extremities exam: Present: normal inspection - Back Exam Back exam: Present: normal inspection - Neurological Exam Neurological exam: Present: alert, oriented X3 - Psychiatric Psychiatric exam: Present: normal affect, normal mood - Skin Skin exam: Present: warm, dry, intact, normal color. Absent: rash ED Disposition Clinical Impression: Hyperkalemia, Abdominal pain Disposition: TO HOME OR SELFCARE Condition: Stable Instructions: Abdominal Pain (ED) Referrals: PRIMARY CARE, [Primary Care Provider] - 10/15/18 (Tomorrow, appointment with Dr. Stella calabrese in [place] At 10 AM) <DAVID ANDREA - Last Filed: 10/14/18 17:33> ED Abdominal Pain HPI - History of Present Illness Initial Comments: 68-year-old -Irish with past medical history of diabetes, hypertension, colitis since emergency department complaining of continued diffuse abdominal pain at the been discharged from hospital last night she was diagnosed with colitis. She was prescribed medications, however she was unable to acquire those medications as of yet. Pain was diffuse crampiness, however, she reports no hematuria, hematemesis, hematochezia. No bloody diarrhea no fever, chills, sweats. Does have some mild diarrhea, but it is improved ED Review of Systems ROS: Stated complaint: STOMACH PAIN Other details as noted in HPI Constitutional: denies: chills, fever Eyes: denies: eye pain, eye discharge, vision change ENT: denies: ear pain, throat pain Respiratory: denies: cough, shortness of breath, wheezing Cardiovascular: denies: chest pain, palpitations Endocrine: no symptoms reported Gastrointestinal: abdominal pain Genitourinary: denies: urgency, dysuria, discharge Musculoskeletal: denies: back pain, joint swelling, arthralgia Skin: denies: rash, lesions Neurological: denies: headache, weakness, paresthesias Psychiatric: denies: anxiety, depression Hematological/Lymphatic: denies: easy bleeding, easy bruising ED Course Vital Signs 10/14/18 10/14/18 10:04 14:06 Temperature 97.8 F 98.7 F Pulse Rate 80 80 Respiratory 16 20 Rate Blood Pressure 164/92 Blood Pressure 157/81 [Left] O2 Sat by Pulse 98 97 Oximetry - Reevaluation(s) Reevaluation #1: 10/14/18 16:41 States she is feeling better. Pain has improved is requesting more pain medication for. She goes home. Discussed with her her CT scan findings and the findings of her laboratory data. Her admission versus breast discharge. She would like to be discharged. States she'll be to fill her prescribed medicatio ns on tomorrow.. 10/14/18 16:42 ED Medical Decision Making - Lab Data Result diagrams: 10/14/18 11:04 [Image 0] 10/14/18 11:04 [Image 1] - Medical Decision Making Called to [facility] whom is able to accommodate her need for dialysis on tomorrow at 10 AM. She was due for dialysis today back to emergency department for continued abdominal pain. There is no active diarrhea. She is tolerating pain well after the medication and no rectal distress. Uses home oxygen which she does have female in an available as well. She understands the importance of maintaining this dialysis appointment today to effect. She received contrast today for CT scan. This was discussed with Ms. Serra is in detail. She did express understanding. Alert and oriented 3 and of sound judgment. Case was discussed with Dr. Jackson whom had face to face [facility] patient and was involved with the entire treatment and plan process. Critical care attestation.: If time is entered above; I have spent that time in minutes in the direct care of this critically ill patient, excluding procedure time. ED Disposition Is pt being admited?: No Does the pt Need Aspirin: No Previous Hospitalization: This is a 68 yo female with pmh of DM type 2, HTN, and ESRD on HD presenting with 2-3 days of lower abdominal pain, cramping like and more frequent stools, which were loose without blood. She is usually constipated and at one time, she did not have any BM for over 1 month. She denies any nausea or vomiting, fever or weight loss. She had not had any sick contact, change in diet or medication, or recent travel. Work up so far with CT abdomen showing wall thickening in the descending and sigmoid colon. Patient started on empiric antibiotics Despite this note, the radiologist's report indicates: Intestines: No oral contrast was administered which limits evaluation of the GI system. The bowel loops appear unremarkable. There is no convincing focal inflammation or obstruction. In my opinion there are no convincing findings of colitis. There is moderate stool in the colon. Appendix: Normal. Pelvic viscera: Normal. Ascites: None. Adenopathy: None. Musculoskeletal: Intact. Mild scoliosis is suspected. IMPRESSION: Mild CHF. No acute process is identified in the abdomen or pelvis. No convincing colitis in my opinion. MD Complaint: abdominal pain -: Gradual, week(s) Location: LLQ, RLQ Radiation: none Migration to: no migration Severity: moderate Quality: aching Consistency: intermittent Improves With: nothing Worsens With: nothing Associated Symptoms: vomiting - Related Data Home Medications Medication Instructions Recorded Confirmed Last Taken Loratadine [Claritin] 10 mg PO DAILY 09/06/17 10/09/18 09/05/17 Previous Rx's Medication Instructions Recorded Last Taken Type Cetirizine HCl [ZyrTEC] 10 mg PO DAILY #20 capsule 09/09/17 Unknown Rx Bisacodyl [Dulcolax tab] 10 mg PO QDAY PRN #30 tablet 12/09/17 Unknown Rx amLODIPine [Norvasc] 10 mg PO QDAY #30 tablet 12/09/17 Unknown Rx cloNIDine [Catapres] 0.1 mg PO Q12HR #60 tablet 12/09/17 Unknown Rx hydrALAZINE [Apresoline TAB] 100 mg PO TID #90 tab 12/09/17 Unknown Rx Bisacodyl [Dulcolax] 10 mg PO DAILY PRN #10 tab 10/13/18 Unknown Rx levoFLOXacin [Levaquin TAB] 500 mg PO Q48HR #2 tablet 10/13/18 Unknown Rx metroNIDAZOLE [Flagyl TAB] 500 mg PO Q8HR 3 Days tablet 10/13/18 Unknown Rx Allergies Allergy/AdvReac Type Severity Reaction Status Date / Time tramadol Allergy Unknown Verified 10/16/18 04:43 ED Review of Systems ROS: Stated complaint: STOMACH AND BACK PAIN DUE TO COLON INFECTION Other details as noted in HPI Constitutional: denies: chills, fever Eyes: denies: eye pain, eye discharge, vision change ENT: denies: ear pain, throat pain Respiratory: denies: cough, shortness of breath, wheezing Cardiovascular: denies: chest pain, palpitations Endocrine: no symptoms reported Gastrointestinal: abdominal pain, nausea, vomiting. denies: diarrhea Genitourinary: denies: urgency, dysuria, discharge Musculoskeletal: denies: back pain, joint swelling, arthralgia Skin: denies: rash, lesions Neurological: denies: headache, weakness, paresthesias Psychiatric: denies: anxiety, depression Hematological/Lymphatic: denies: easy bleeding, easy bruising ED Past Medical Hx - Past Medical History Previous Medical History?: Yes Hx Hypertension: Yes Hx Diabetes: Yes Hx Renal Disease: Yes (HD M,W,F) Hx HIV: No Additional medical history: Patient had some thickening of the wall of the descending colon on her CT scan was done on 10/09/2018. - Surgical History Past Surgical History?: Yes Additional Surgical History: left arm, left chest permacath - Social History Smoking Status: Never Smoker - Medications Home Medications: Home Medications Medication Instructions Recorded Confirmed Last Taken Type Loratadine [Claritin] 10 mg PO DAILY 09/06/17 10/09/18 09/05/17 History Cetirizine HCl [ZyrTEC] 10 mg PO DAILY #20 capsule 09/09/17 10/09/18 Unknown Rx Bisacodyl [Dulcolax tab] 10 mg PO QDAY PRN #30 tablet 12/09/17 10/09/18 Unknown Rx amLODIPine [Norvasc] 10 mg PO QDAY #30 tablet 12/09/17 10/09/18 Unknown Rx cloNIDine [Catapres] 0.1 mg PO Q12HR #60 tablet 12/09/17 10/09/18 Unknown Rx hydrALAZINE [Apresoline TAB] 100 mg PO TID #90 tab 12/09/17 10/09/18 Unknown Rx Bisacodyl [Dulcolax] 10 mg PO DAILY PRN #10 tab 10/13/18 Unknown Rx levoFLOXacin [Levaquin TAB] 500 mg PO Q48HR #2 tablet 10/13/18 Unknown Rx metroNIDAZOLE [Flagyl TAB] 500 mg PO Q8HR 3 Days tablet 10/13/18 Unknown Rx ED Physical Exam - General Limitations: No Limitations General appearance: alert, in no apparent distress - Head Head exam: Present: atraumatic, normocephalic - Eye Eye exam: Present: normal appearance. Absent: scleral icterus - ENT ENT exam: Present: mucous membranes moist - Neck Neck exam: Present: normal inspection - Respiratory Respiratory exam: Present: normal lung sounds bilaterally. Absent: respiratory distress - Cardiovascular Cardiovascular Exam: Present: regular rate, normal rhythm. Absent: systolic murmur, diastolic murmur, rubs, gallop - GI/Abdominal GI/Abdominal exam: Present: soft, normal bowel sounds. Absent: distended, tenderness, guarding, rebound, rigid, organomegaly, mass, bruit, pulsatile mass, hernia - Extremities Exam Extremities exam: Present: normal inspection - Back Exam Back exam: Present: normal inspection - Neurological Exam Neurological exam: Present: alert, oriented X3, CN II-XII intact. Absent: motor sensory deficit - Psychiatric Psychiatric exam: Present: normal affect, normal mood - Skin Skin exam: Present: warm, dry, intact, normal color. Absent: rash ED Course Vital Signs 10/16/18 10/16/18 10/16/18 03:27 04:47 05:14 Temperature 97.4 F L 97.4 F L Pulse Rate 89 89 Respiratory 20 20 22 Rate Blood Pressure 197/111 197/111 Blood Pressure [Left] O2 Sat by Pulse 94 100 Oximetry 10/16/18 10/16/18 10/16/18 06:14 07:44 07:51 Temperature Pulse Rate 84 Respiratory 16 16 16 Rate Blood Pressure Blood Pressure 169/81 [Left] O2 Sat by Pulse 100 100 Oximetry 10/16/18 10/16/18 10/16/18 09:45 10:18 10:48 Temperature Pulse Rate 81 Respiratory 16 16 16 Rate Blood Pressure Blood Pressure 160/78 [Left] O2 Sat by Pulse 100 Oximetry - Reevaluation(s) Reevaluation #1: The patient was given a hyperkalemia cocktail. I spoke with Dr. Farzana galvez who will be dialyzing the patient today. The patient was admitted to the hospitalist service. 10/16/18 11:10 Reevaluation #2: At this time I will defer any further abdominal and or other imaging to the hospitalist staff. 10/16/18 11:10 ED Medical Decision Making - Lab Data Result diagrams: 10/16/18 08:30 10/16/18 08:30 Laboratory Results - last 24 hr 10/16/18 10/16/18 10/16/18 08:30 08:30 08:30 WBC 3.6 L RBC 3.12 L Hgb 9.9 L Hct 30.2 L MCV 97 MCH 32 MCHC 33 RDW 20.0 H Plt Count 196 PT 15.2 H INR 1.16 H APTT 31.5 Sodium 135 L Potassium 6.1 H* Chloride 96.5 L Carbon Dioxide 19 L Anion Gap 26 BUN 57 H Creatinine 8.1 H Estimated GFR 6 BUN/Creatinine Ratio 7 Glucose 106 H Lactic Acid Calcium 8.3 L Magnesium Total Bilirubin 0.40 AST 26 ALT 28 Alkaline Phosphatase 152 H Total Creatine Kinase CK-MB (CK-2) CK-MB (CK-2) Rel Index Troponin T NT-Pro-B Natriuret Pep Total Protein 7.0 Albumin 3.7 L Albumin/Globulin Ratio 1.1 Triglycerides Cholesterol LDL Cholesterol Direct HDL Cholesterol Cholesterol/HDL Ratio Lipase Urine Color Urine Turbidity Urine pH Ur Specific Temple Urine Protein Urine Glucose (UA) Urine Ketones Urine Blood Urine Nitrite Urine Bilirubin Urine Urobilinogen Ur Leukocyte Esterase Urine WBC (Auto) Urine RBC (Auto) U Epithel Cells (Auto) 10/16/18 10/16/18 10/16/18 08:30 08:30 08:53 WBC RBC Hgb Hct MCV MCH MCHC RDW Plt Count PT INR APTT Sodium Potassium Chloride Carbon Dioxide Anion Gap BUN Creatinine Estimated GFR BUN/Creatinine Ratio Glucose Lactic Acid 1.50 Calcium Magnesium 2.00 Total Bilirubin AST ALT Alkaline Phosphatase Total Creatine Kinase 172 H CK-MB (CK-2) 4.5 H CK-MB (CK-2) Rel Index 2.6 Troponin T 0.114 H* NT-Pro-B Natriuret Pep > 94690 H Total Protein Albumin Albumin/Globulin Ratio Triglycerides 126 Cholesterol 154 LDL Cholesterol Direct 85 HDL Cholesterol 55 Cholesterol/HDL Ratio 2.80 Lipase 46 Urine Color Yellow Urine Turbidity Clear Urine pH 8.0 H Ur Specific Temple 1.018 Urine Protein >500 Urine Glucose (UA) 50 Urine Ketones Neg Urine Blood Neg Urine Nitrite Neg Urine Bilirubin Neg Urine Urobilinogen < 2.0 Ur Leukocyte Esterase Neg Urine WBC (Auto) 2.0 Urine RBC (Auto) 1.0 U Epithel Cells (Auto) < 1.0 - EKG Data -: EKG Interpreted by Me EKG shows normal: sinus rhythm Rate: normal - EKG Data Interpretation: LVH (LVH intraventricular conduction delay leftward axis no acute ischemic changes) - Radiology Data Radiology results: report reviewed interpreted by me: An abdominal film from last night shows nonspecific bowel gas pattern. There is substantial cardiomegaly and I think some degree of venous congestion although not noted by radiologist. There are pleural effusions. FINDINGS: No mediastinal shift. Mild patient rotation. Cardiomegaly. Left chest central line appear satisfactory. Ill-defined left greater than right basilar opacity and blunting of the left costophrenic angle. IMPRESSION: Ill-defined left basilar opacity with small left greater than right effusions. Aeration of the right lower lung appears improved compared to 10/09/2018. Critical care attestation.: If time is entered above; I have spent that time in minutes in the direct care of this critically ill patient, excluding procedure time. ED Disposition Clinical Impression: Hyperkalemia, End-stage renal disease needing dialysis, Elevated troponin, Metabolic acidosis Abdominal pain Qualifiers: Abdominal location: lower abdomen, unspecified Qualified Code(s): R10.30 - Lower abdominal pain, unspecified Disposition: OP ADMIT IP TO THIS HOSP Is pt being admited?: Yes Does the pt Need Aspirin: No Condition: Stable Time of Disposition: 11:10
--- NOTE | 2018-10-16 08:21 | XRay Report ---
FINAL REPORT EXAM: XR CHEST 1V AP HISTORY: hypertension TECHNIQUE: AP portable view(s) of the chest obtained. PRIORS: CT abdomen and pelvis 10/09/2018, chest radiograph 12/06/2017 FINDINGS: No mediastinal shift. Mild patient rotation. Cardiomegaly. Left chest central line appear satisfactor y. Ill-defined left greater than right basilar opacity and blunting of the left costophrenic angle. IMPRESSION: Ill-defined left basilar opacity with small left greater than right effusions. Aeration of the right lower lung appears improved compared to 10/09/2018.
[2018-10-16 08:44] LABS: Hematocrit 30.2 % (30.3-42.9); Hemoglobin 9.9 gm/dl (10.1-14.3); Mean Corpuscular HGB Conc 33 % (30-34); Mean Corpuscular Volume 97 fl (79-97); Platelet Count 196 K/mm3 (140-440); Red Blood Count 3.12 M/mm3 (3.65-5.03)
[2018-10-16 08:54] LABS: INR 1.16 (0.87-1.13)
[2018-10-16 08:55] LABS: Partial Thromboplastin Time 31.5 Sec. (24.2-36.6)
[2018-10-16 09:13] LABS: Bilirubin,Urine NEG (Negative); Blood,Urine NEG (Negative); Color,Urine Yellow (Yellow); Urobilinogen,Urine < 2.0 mg/dL (<2.0)
[2018-10-16 09:16] LABS: Creatine Kinase MB 4.5 ng/mL (0.0-4.0)
[2018-10-16 09:18] LABS: Albumin 3.7 g/dL (3.9-5); Calcium 8.3 mg/dL (8.4-10.2)
[2018-10-16 09:18] LABS: Protein,Urine >500 mg/dL (Negative)
[2018-10-16] MEDS ORDERED: ZOFRAN IV ONE (09:38)
[2018-10-16] MEDS ORDERED: MORPHINE IV ONE (09:38)
[2018-10-16] MEDS ORDERED: HumuLIN R IV ONE (09:45)
[2018-10-16] MEDS ORDERED: D50W (25GM) Syringe IV ONE (09:45)
[2018-10-16] MEDS ORDERED: SODIUM BICARBONATE IV ONE (09:45)
[2018-10-16 10:00] LABS: HDL Cholesterol 55 mg/dL (40-59); LDL Cholesterol,Direct 85 mg/dL (50-130)
--- NOTE | 2018-10-16 10:17 | History and Physical Report ---
History of Present Illness Date of examination: 10/16/18 Chief complaint: abdominal pain History of present illness: The patient is a 68-year-old female presenting with a chief complaint of ab dominal pain. The patient states for the past 2-3 days she has had constant lower abdominal pain. Patient denies nausea or vomiting states at one point she had frequent stools she is not certain if it could be characterized as diarrhea. Patient denies history of fever. The patient states her last dialysis was last week Wednesday. Patient gives her pain a score of 10/10. She previously came t o ER on 10/09/18 and was discharged on 10/13/18 after being treated for colitis, she came back next day to ER on 10/14/18 for similar reason and CT scan done that time in the emergency room revealed no acute process and was discharged back from ER. Today the patient also noted K of 6.0, received in sulin/d50/NaHCO3 in the ER. nephrology consulted for HD. Past History Past Medical History: ESRD, hypertension Past Surgical History: No surgical history Social history: no significant social history Family history: no significant family history Medications and Allergies Allergies Allergy/AdvReac Type Severity Reaction Status Date / Time tramadol Allergy Unknown Verified 10/16/18 04:43 Home Medications Medication Instructions Recorded Confirmed Last Taken Type Loratadine [Claritin] 10 mg PO DAILY 09/06/17 10/09/18 09/05/17 History Cetirizine HCl [ZyrTEC] 10 mg PO DAILY #20 capsule 09/09/17 10/09/18 Unknown Rx Bisacodyl [Dulcolax tab] 10 mg PO QDAY PRN #30 tablet 12/09/17 10/09/18 Unknown Rx amLODIPine [Norvasc] 10 mg PO QDAY #30 tablet 12/09/17 10/09/18 Unknown Rx cloNIDine [Catapres] 0.1 mg PO Q12HR #60 tablet 12/09/17 10/09/18 Unknown Rx hydrALAZINE [Apresoline TAB] 100 mg PO TID #90 tab 12/09/17 10/09/18 Unknown Rx Bisacodyl [Dulcolax] 10 mg PO DAILY PRN #10 tab 10/13/18 Unknown Rx levoFLOXacin [Levaquin TAB] 500 mg PO Q48HR #2 tablet 10/13/18 Unknown Rx metroNIDAZOLE [Flagyl TAB] 500 mg PO Q8HR 3 Days tablet 10/13/18 Unknown Rx Active Meds: Active Medications Sodium Bicarbonate (Sodium Bicarbonate Syringe) 50 meq IV ONCE ONE Stop: 10/16/18 11:01 Exam - Physical Exam Narrative exam: General appearance: Present: no acute distress, well-nourished - EENT Eyes: Present: PERRL ENT: hearing intact, clear oral mucosa - Neck Neck: Present: supple, normal ROM - Respiratory Respiratory effort: normal Respiratory: bilateral: CTA - Cardiovascular Heart Sounds: Present: S1 & S2. Absent: rub, click - Extremities Extremities: pulses symmetrical, No edema Peripheral Pulses: within normal limits - Abdominal General gastrointestinal: Present: soft, tender, non-distended, normal bowel sounds Localized gastrointestinal: tender: diffuse Female genitourinary: Present: normal - Integumentary Integumentary: Present: clear, warm, dry - Musculoskeletal Musculoskeletal: gait normal, strength equal bilaterally - Psychiatric Psychiatric: appropriate mood/affect, intact judgment & insight - Neurologic Neurologic: CNII-XII intact, moves all extremities - Constitutional Vitals: Temp Pulse Resp BP Pulse Ox 97.4 F L 84 16 169/81 100 10/16/18 04:47 10/16/18 07:44 10/16/18 07:51 10/16/18 07:44 10/16/18 07:51 Results - Labs CBC & Chem 7: 10/16/18 08:30 10/16/18 08:30 Labs: Abnormal lab results 10/16/18 10/16/18 10/16/18 Range/Units 08:30 08:30 08:30 WBC 3.6 L (4.5-11.0) K/mm3 RBC 3.12 L (3.65-5.03) M/mm3 Hgb 9.9 L (10.1-14.3) gm/dl Hct 30.2 L (30.3-42.9) % RDW 20.0 H (13.2-15.2) % PT 15.2 H (12.2-14.9) Sec. INR 1.16 H (0.87-1.13) Sodium 135 L (137-145) mmol/L Potassium 6.1 H* (3.6-5.0) mmol/L Chloride 96.5 L (98-107) mmol/L Carbon Dioxide 19 L (22-30) mmol/L BUN 57 H (7-17) mg/dL Creatinine 8.1 H (0.7-1.2) mg/dL Glucose 106 H (65-100) mg/dL Calcium 8.3 L (8.4-10.2) mg/dL Alkaline Phosphatase 152 H (35-129) units/L Total Creatine Kinase (30-135) units/L CK-MB (CK-2) (0.0-4.0) ng/mL Troponin T (0.00-0.029) ng/mL Albumin 3.7 L (3.9-5) g/dL Urine pH (5.0-7.0) 10/16/18 10/16/18 Range/Units 08:30 08:53 WBC (4.5-11.0) K/mm3 RBC (3.65-5.03) M/mm3 Hgb (10.1-14.3) gm/dl Hct (30.3-42.9) % RDW (13.2-15.2) % PT (12.2-14.9) Sec. INR (0.87-1.13) Sodium (137-145) mmol/L Potassium (3.6-5.0) mmol/L Chloride (98-107) mmol/L Carbon Dioxide (22-30) mmol/L BUN (7-17) mg/dL Creatinine (0.7-1.2) mg/dL Glucose (65-100) mg/dL Calcium (8.4-10.2) mg/dL Alkaline Phosphatase (35-129) units/L Total Creatine Kinase 172 H (30-135) units/L CK-MB (CK-2) 4.5 H (0.0-4.0) ng/mL Troponin T 0.114 H* (0.00-0.029) ng/mL Albumin (3.9-5) g/dL Urine pH 8.0 H (5.0-7.0) - Imaging and Cardiology Chest x-ray: report reviewed Assessment and Plan Fluid overload due to HD noncompliance End stage renal disease on hemodialysis Hyperkalemia, due to ESRD - s/p insulin/d50/NaHCO3 given in the ER - IV Lasix, kayexalate ordered and Nephrology consulted Abdominal pain, negative CT abdomen 2 days ago, will get a XRY, supportive care Hypertensive urgency - Patient started on amlodipine, hydralazine and clonidine Dialysis noncompliant - Patient is counseled about adherence to treatment DVT prophylaxis - Heparin Disposition - Admit to medical floor
[2018-10-16] MEDS ORDERED: DULCOLAX PR PRN (10:22)
[2018-10-16] MEDS ORDERED: NORCO 5/325 PO PRN (10:22)
[2018-10-16] MEDS ORDERED: APRESOLINE IV PRN (10:22)
[2018-10-16] MEDS ORDERED: ZOFRAN IV PRN (10:22)
[2018-10-16] MEDS ORDERED: KIONEX PO ONE (11:00)
[2018-10-16] MEDS ORDERED: LASIX 100 MG in NACL 0.9% 50 ML IV ONE (11:00)
[2018-10-16] MEDS ORDERED: HEPARIN 10,000 UNITS/10 ML IV PRN (11:31)
[2018-10-16] MEDS ORDERED: NACL 0.9% 100 ML IV PRN (11:31)
--- NOTE | 2018-10-16 12:47 | XRay Report ---
FINAL REPORT EXAM: XR ABDOMEN 1V AP HISTORY: pain COMPARISON: CT of the abdomen and pelvis performed on 10/09/2018 TECHNIQUE: Two views of the abdomen FINDINGS: Nonobstructive bowel gas pattern. No free air. The gallbladder is somewhat dense, which may be due to vicarious excretion of contrast versus sludge or stones. No acute bony or soft tissue abnormality. IMPRESSION: Nonobstructive bowel gas pattern. Gallbladder is somewhat dense, which may be due to vicarious excretion of contrast versus sludge or s tones.
--- NOTE | 2018-10-16 14:06 | Consultation ---
History of Present Illness - Reason for Consult Consult date: 10/16/18 end stage renal disease Requesting physician: SAI MANZO - History of Present Illness 68-year-old lady with a history of hypertension presents with lower abdominal pain with nausea and vomiting. She has end-stage renal disease on hemodialysis for 2 years. She missed hemodialysis yesterday. Was recently discharged on October 13 following admission on October [address] of the abdomen and pelvis which was nondiagnostic. Pain recurred so he came back to the emergency room for evaluation Past History Past Medical History: ESRD, hypertension Past Surgical History: Other (Permacath, Left UE AVG ) Social history: lives with family. denies: smoking, alcohol abuse, prescription drug abuse, IV drug use Family history: other Medications and Allergies Allergies Allergy/AdvReac Type Severity Reaction Status Date / Time tramadol Allergy Unknown Verified 10/16/18 04:43 Home Medications Medication Instructions Recorded Confirmed Last Taken Type Loratadine [Claritin] 10 mg PO DAILY 09/06/17 10/09/18 09/05/17 History Cetirizine HCl [ZyrTEC] 10 mg PO DAILY #20 capsule 09/09/17 10/09/18 Unknown Rx Bisacodyl [Dulcolax tab] 10 mg PO QDAY PRN #30 tablet 12/09/17 10/09/18 Unknown Rx amLODIPine [Norvasc] 10 mg PO QDAY #30 tablet 12/09/17 10/09/18 Unknown Rx cloNIDine [Catapres] 0.1 mg PO Q12HR #60 tablet 12/09/17 10/09/18 Unknown Rx hydrALAZINE [Apresoline TAB] 100 mg PO TID #90 tab 12/09/17 10/09/18 Unknown Rx Bisacodyl [Dulcolax] 10 mg PO DAILY PRN #10 tab 10/13/18 Unknown Rx levoFLOXacin [Levaquin TAB] 500 mg PO Q48HR #2 tablet 10/13/18 Unknown Rx metroNIDAZOLE [Flagyl TAB] 500 mg PO Q8HR 3 Days tablet 10/13/18 Unknown Rx Active Meds: Active Medications Acetaminophen (Tylenol) 650 mg PO Q4H PRN PRN Reason: Pain MILD(1-3)/Fever >100.5/[place] Amlodipine Besylate (Norvasc) 10 mg PO QDAY DAYAMI Bisacodyl (Dulcolax) 10 mg RI QDAY PRN PRN Reason: Constipation unrelieved by [facility] Clonidine HCl (Catapres) 0.1 mg PO Q12HR [facility] Docusate Sodium (Colace) 100 mg PO BID DAYAMI Epoetin Anupam (Procrit) 10,000 unit IV DEBBI PRN PRN Reason: hemodialysis Famotidine (Pepcid) 10 mg PO QDAY [facility] Heparin Sodium (Porcine) (Heparin) 5,000 unit SUB-Q Q12H [facility] Heparin Sodium (Porcine) (Heparin 10,000 Units/10 Ml) 1,000 unit IV DEBBI PRN PRN Reason: hemodialysis Hydralazine HCl (Apresoline) 100 mg PO TID DAYAMI Hydralazine HCl (Apresoline) 5 mg IV Q30MIN PRN PRN Reason: SBP > 180 OR DBP > 100 Sodium Chloride (Nacl 0.9%) 100 mls @ 999 mls/hr IV DEBBI PRN PRN Reason: Hypotension Ondansetron HCl (Zofran) 4 mg IV Q8H PRN PRN Reason: N/V unrelieved by Emily Senna (Senokot) 8.6 mg PO Q12HR [facility] Review of Systems All systems: negative (Constitutional: no fever or chills. No anorexia or weight loss. HEENT: No sore throat but admits to sinus drainage. No hearing or vision impairment . Cardiovascular: No chest pain but admits to shortness of breath, palpitations. No lower extremity swelling but has had episodes of dizziness. Respiratory: Admits to cough productive of clear sputum, shortness of breath, hemoptysis or wheezing. Gastrointestinal: See history of present illness. No hematemesis or melena. Genitourinary: Patient still makes urine. No frequency urgency dysuria or hematuria. hematologic: No abnormal bleeding or bruising. Integumentary: no pruritus or rash. Neurological: Admits to headaches. No focal weakness or numbness, no syncope or seizures. Musculoskeletal: No joint pains no stiffness. Psychiatry: Admits to both anxiety and depression) Exam - Vital Signs Vital signs: Vital Signs Temp Pulse Resp BP Pulse Ox 97.4 F L 89 20 197/111 94 10/16/18 03:27 10/16/18 03:27 10/16/18 03:27 10/16/18 03:27 10/16/18 03:27 - Physical Exam Narrative exam: Elderly, comfortably lying in bed in no acute distress HEENT: NCAT, pink oral mucous membrane Neck: Supple, no venous distention CVS: S1S2 RRR with no murmur, rub or gallop Chest: Mild decrease in breath sounds Abdomen: Distended soft, suprapubic tenderness +, no organomegaly, bowel sounds are present Extremities: No edema Neuro: Awake, alert no focal deficits Results - Lab Results 10/16/18 08:30 10/16/18 08:30 Most recent lab results Calcium 8.3 mg/dL (8.4-10.2) L 10/16/18 08:30 Magnesium 2.00 mg/dL (1.7-2.3) 10/16/18 08:30 Assessment and Plan - Patient Problems (1) Hyperkalemia Current Visit: Yes Status: Acute Plan to address problem: Hyperkalemia secondary to missed dialysis. Hemodialysis today. Reevaluate in the morning (2) Acidosis Current Visit: Yes Status: Acute Plan to address problem: Metabolic acidosis, uremic acidosis. Hemodialysis today and reevaluate in the morning (3) Hypertensive urgency Current Visit: Yes Status: Acute Plan to address problem: Follow blood pressure following fluid removal on dialysis (4) Anemia Current Visit: Yes Status: Acute Plan to address problem: Give Erythropoetin on dialysis (5) ESRD needing dialysis Current Visit: Yes Status: Acute Plan to address problem: Patient has been poorly compliant with dialysis regimen. Had a long discussion about importance of adhering to her dialysis regimen.
[2018-10-16] MEDS: PROCRIT IV PRN (14:50)
[2018-10-16] MEDS: APRESOLINE PO SCH ×2 (18:31→21:00)
[2018-10-16] MEDS: CATAPRES PO SCH ×2 (18:36→22:00)
[2018-10-16] MEDS: HEPARIN SUB-Q SCH ×2 (18:36→22:50)
[2018-10-16] MEDS: NORVASC PO SCH (18:37)
[2018-10-16] MEDS: COLACE PO SCH (21:59)
[2018-10-16] MEDS: SENOKOT PO SCH (22:00)
[2018-10-17 03:45] LABS: Calcium 7.7 mg/dL (8.4-10.2)
[2018-10-17] MEDS: APRESOLINE PO SCH ×3 (07:39→21:35)
[2018-10-17] MEDS: SENOKOT PO SCH ×2 (09:18→21:34)
[2018-10-17] MEDS: CATAPRES PO SCH ×2 (09:18→21:33)
[2018-10-17] MEDS: NORVASC PO SCH (09:18)
[2018-10-17] MEDS: PEPCID PO SCH (09:18)
--- NOTE | 2018-10-17 09:18 | Progress Note ---
Assessment and Plan - Patient Problems (1) Hyperkalemia Current Visit: Yes Status: Acute Plan to address problem: Hyperkalemia secondary to missed dialysis. Resolved following dialysis. We'll resume hemodialysis schedule on Mondays, Wednesdays and Fridays (2) Acidosis Current Visit: Yes Status: Acute Plan to address problem: Metabolic acidosis, uremic acidosis. Improved with Hemodialysis (3) Hypertensive urgency Current Visit: Yes Status: Acute Plan to address problem: Blood pressure improved with fluid removal on dialysis (4) Anemia Current Visit: Yes Status: Acute Plan to address problem: Give Erythropoetin on dialysis (5) ESRD needing dialysis Current Visit: Yes Status: Acute Plan to address problem: Patient has been poorly compliant with dialysis regimen. Had a long discussion about importance of adhering to her dialysis regimen. (6) Abdominal pain Current Visit: Yes Status: Acute Qualifiers: Abdominal location: lower abdomen, unspecified Qualified Code(s): R10.30 - Lower abdominal pain, unspecified Plan to address problem: Consider GI referral Subjective Date of service: 10/17/18 Principal diagnosis: end-stage renal disease Interval history: Patient seen lying in bed. Still complains of abdominal pain. No nausea or vomiting. Objective - Exam Narrative Exam: Elderly, comfortably lying in bed in no acute distress HEENT: NCAT, pink oral mucous membrane Neck: Supple, no venous distention CVS: S1S2 RRR with no murmur, rub or gallop Chest: Mild decrease in breath sounds Abdomen: Distended soft, suprapubic tenderness +, no organomegaly, bowel sounds are present Extremities: No edema Neuro: Awake, alert no focal deficits - Vital Signs Vital signs: Vital Signs - 12hr 10/17/18 10/17/18 10/17/18 02:00 02:15 07:24 Temperature 97.8 F 98.4 F Pulse Rate 75 75 Respiratory 18 18 Rate Blood Pressure 134/46 138/55 O2 Sat by Pulse 92 97 Oximetry - Lab 10/16/18 08:30 10/17/18 02:49 Most recent lab results Calcium 7.7 mg/dL (8.4-10.2) L 10/17/18 02:49 Magnesium 2.00 mg/dL (1.7-2.3) 10/16/18 08:30 Medications & Allergies - Medications Allergies/Adverse Reactions: Allergies tramadol Allergy (Verified 10/16/18 04:43) Unknown Home Medications: Home Medications Medication Instructions Recorded Confirmed Last Taken Type Loratadine [Claritin] 10 mg PO DAILY 09/06/17 10/16/18 10/14/18 History Cetirizine HCl [ZyrTEC] 10 mg PO DAILY #20 capsule 09/09/17 10/16/18 10/14/18 Rx Bisacodyl [Dulcolax tab] 10 mg PO QDAY PRN #30 tablet 12/09/17 10/16/18 10/14/18 Rx amLODIPine [Norvasc] 10 mg PO QDAY #30 tablet 12/09/17 10/16/18 10/14/18 Rx cloNIDine [Catapres] 0.1 mg PO Q12HR #60 tablet 12/09/17 10/16/18 10/14/18 Rx hydrALAZINE [Apresoline TAB] 100 mg PO TID #90 tab 12/09/17 10/16/18 10/14/18 Rx Bisacodyl [Dulcolax] 10 mg PO DAILY PRN #10 tab 10/13/18 10/16/18 10/14/18 Rx levoFLOXacin [Levaquin TAB] 500 mg PO Q48HR #2 tablet 10/13/18 10/16/18 10/14/18 Rx metroNIDAZOLE [Flagyl TAB] 500 mg PO Q8HR 3 Days tablet 10/13/18 10/16/18 10/14/18 Rx Active Medications: Generic Name Dose Route Start Last Admin Trade Name Freq PRN Reason Stop Dose Admin Acetaminophen 650 mg 10/16/18 10:22 Tylenol PO Q4H PRN Pain MILD(1-3)/Fever >100.5/[place] Amlodipine Besylate 10 mg 10/16/18 11:00 10/16/18 18:37 Norvasc PO Not Given QDAY DAYAMI Bisacodyl 10 mg 10/16/18 10:22 Dulcolax [place] QDAY PRN Constipation unrelieved by MOM Clonidine HCl 0.1 mg 10/16/18 11:00 10/16/18 22:00 Catapres PO 0.1 mg Q12HR DAYAMI Administration Docusate Sodium 100 mg 10/16/18 22:00 10/16/18 21:59 Colace PO 100 mg BID DAYAMI Administration Epoetin Anupam 10,000 unit 10/16/18 11:31 10/16/18 14:50 Procrit IV 10,000 unit DEBBI PRN Administration hemodialysis Famotidine 10 mg 10/17/18 10:00 Pepcid PO QDAY DAYAMI Heparin Sodium (Porcine) 5,000 unit 10/16/18 11:00 10/16/18 22:50 Heparin SUB-Q 5,000 unit Q12H DAYAMI Administration Heparin Sodium (Porcine) 1,000 unit 10/16/18 11:31 Heparin 10,000 Units/10 Ml IV DEBBI PRN hemodialysis Hydralazine HCl 100 mg 10/16/18 14:00 10/17/18 07:39 Apresoline PO 100 mg TID DAYAMI Administration Hydralazine HCl 5 mg 10/16/18 10:22 Apresoline IV Q30MIN PRN SBP > 180 OR DBP > 100 Sodium Chloride 100 mls @ 999 mls/hr 10/16/18 11:31 Nacl 0.9% IV DEBBI PRN Hypotension Ondansetron HCl 4 mg 10/16/18 10:22 Zofran IV Q8H PRN N/V unrelieved by Emily Mcgill 8.6 mg 10/16/18 22:00 10/16/18 22:00 Senokot PO 8.6 mg Q12HR DAYAMI Administration
[2018-10-17] MEDS: COLACE PO SCH ×2 (09:21→22:08)
[2018-10-17] MEDS ORDERED: NACL 0.9% 100 ML IV PRN (09:30)
[2018-10-17] MEDS: HEPARIN SUB-Q SCH ×2 (10:37→22:54)
--- NOTE | 2018-10-17 14:50 | Discharge Summary ---
Providers - Providers Date of Admission: 10/16/18 09:49 Date of discharge: 10/18/18 Attending physician: AUSTIN GARCIA 10/16/18 10:13 Consult to Physician [CONS] Routine Comment: called answ. serv./ PREMA Consulting Provider: MATEO MACIAS Physician Instructions: Reason For Exam: ESRD Primary care physician: TEENAGE BABYSITTER Hospitalization Reason for admission: abdominal pain Condition: Stable Pertinent studies: Abdomen xry CXR Hospital course: The patient is a 68-year-old female presented with a chief complaint of abdominal pain. The patient also had her last dialysis last week Wednesday. She previously came to ER on 10/09/18 and was discharged on 10/13/18 after being tr eated for colitis, she came back next day to ER on 10/14/18 for similar reason and CT scan done that time in the emergency room revealed no acute process and was discharged back from ER. During this admission the patient noted K of 6.0, received insulin/d50/NaHCO3 in the ER. Nephrology consulted for HD and admitted for further evaluation. Patient was dialyzed per nephrology recommendation, placed on renal diet which she tolerated. She was counseled for compliance, monitored BP. Patient was then discharged home in stable condition. Discharge diagnosis: Fluid overload due to HD noncompliance End stage renal disease on hemodialysis Hyperkalemia, due to ESRD - s/p insulin/d50/NaHCO3/ kayexalate - Nephrology consulted for HD Abdominal pain, negative CT abdomen on 10/14/18, tolerating diet, No N/V Anemia of CD, monitored H/h Hypertensive urgency - Patient started on amlodipine, hydralazine and clonidine - closely monitored Dialysis noncompliant - Patient was counseled about adherence to treatment DVT prophylaxis - Placed on Heparin Disposition - home with Disposition: [id number] HOME [facility] Time spent for discharge: 34 minutes Core Measure Documentation - Palliative Care Palliative Care/ Comfort Measures: Not Applicable - Core Measures Any of the following diagnoses?: none Exam - Physical Exam Narrative exam: General appearance: Present: no acute distress, well-nourished - EENT Eyes: Present: PERRL ENT: hearing intact, clear oral mucosa - Neck Neck: Present: supple, normal ROM - Respiratory Respiratory effort: normal Respiratory: bilateral: CTA - Cardiovascular Heart Sounds: Present: S1 & S2. Absent: rub, click - Extremities Extremities: pulses symmetrical, No edema Peripheral Pulses: within normal limits - Abdominal General gastrointestinal: Present: soft, tender, non-distended, normal bowel sounds Localized gastrointestinal: tender: diffuse Female genitourinary: Present: normal - Integumentary Integumentary: Present: clear, warm, dry - Musculoskeletal Musculoskeletal: gait normal, strength equal bilaterally - Psychiatric Psychiatric: appropriate mood/affect, intact judgment & insight - Neurologic Neurologic: CNII-XII intact, moves all extremities - Constitutional Vitals: Temp Pulse Resp BP Pulse Ox 98.4 F 75 18 137/55 97 10/17/18 07:24 10/17/18 10:00 10/17/18 07:24 10/17/18 09:18 10/17/18 07:24 Plan Activity: advance as tolerated Weight Bearing Status: Non-Weight Bearing Diet: renal Follow up with: PRIMARY CARE, [Primary Care Provider] - 3-5 Days Prescriptions: Aspirin EC [Aspirin Enteric Coated TAB] 81 mg PO QDAY #30 tablet. Lidocaine [Lidocaine Pain Relief] 1 each TP 3XW PRN #14 adh..patch PRN Reason: Muscle Spasm
[2018-10-17] MEDS: TYLENOL PO PRN ×2 (17:13→21:35)
[2018-10-17] MEDS ORDERED: NACL 0.9 (PRIMING MACHINE ONLY DIALYSIS) MC ONE (17:40)
[2018-10-18] MEDS: APRESOLINE PO SCH ×2 (07:57→14:22)
--- NOTE | 2018-10-18 08:46 | Progress Note ---
Assessment and Plan - Patient Problems (1) Hyperkalemia Status: Acute Plan to address problem: Hyperkalemia secondary to missed dialysis. Resolved following dialysis. She refused dialysis yesterday. Agrees to dialysis today (2) Acidosis Status: Acute Plan to address problem: Metabolic acidosis, uremic acidosis. Improved with Hemodialysis (3) Hypertensive urgency Status: Acute Plan to address problem: Blood pressure improved with fluid removal on dialysis (4) Anemia Status: Acute Plan to address problem: Give Erythropoetin on dialysis (5) ESRD needing dialysis Status: Acute Plan to address problem: Patient has been poorly compliant with dialysis regimen. Had a long discussion about importance of adhering to her dialysis regimen. (6) Abdominal pain Status: Acute Qualifiers: Abdominal location: lower abdomen, unspecified Qualified Code(s): R10.30 - Lower abdominal pain, unspecified Plan to address problem: Resolving. Management by primary attending Subjective Date of service: 10/18/18 Principal diagnosis: end-stage renal disease Interval history: Patient seen lying in bed. Abdominal pain has improved. She refused dialysis yesterday because she wanted lidocaine cream applied to her back. No nausea or vomiting. Objective - Exam Narrative Exam: Elderly, comfortably lying in bed in no acute distress HEENT: NCAT, pink oral mucous membrane Neck: Supple, no venous distention CVS: S1S2 RRR with no murmur, rub or gallop Chest: Mild decrease in breath sounds Abdomen: Distended soft, suprapubic tenderness +, no organomegaly, bowel sounds are present Extremities: No edema Neuro: Awake, alert no focal deficits - Vital Signs Vital signs: Vital Signs - 12hr 10/17/18 10/17/18 10/18/18 21:33 22:00 03:00 Temperature Pulse Rate 73 73 Respiratory Rate Blood Pressure 132/70 O2 Sat by Pulse 100 Oximetry 10/18/18 10/18/18 07:37 08:05 Temperature 97.3 F L Pulse Rate 72 Respiratory 18 Rate Blood Pressure 141/66 O2 Sat by Pulse 95 99 Oximetry - Lab 10/16/18 08:30 10/17/18 02:49 Most recent lab results Calcium 7.7 mg/dL (8.4-10.2) L 10/17/18 02:49 Magnesium 2.00 mg/dL (1.7-2.3) 10/16/18 08:30 Medications & Allergies - Medications Allergies/Adverse Reactions: Allergies tramadol Allergy (Verified 10/16/18 04:43) Unknown Home Medications: Home Medications Medication Instructions Recorded Confirmed Last Taken Type RX: Loratadine [Claritin] 10 mg PO DAILY 09/06/17 10/16/18 10/14/18 History RX: Cetirizine HCl [ZyrTEC] 10 mg PO DAILY #20 capsule 09/09/17 10/16/18 10/14/18 Rx RX: Bisacodyl [Dulcolax tab] 10 mg PO QDAY PRN #30 tablet 12/09/17 10/16/18 10/14/18 Rx RX: amLODIPine [Norvasc] 10 mg PO QDAY #30 tablet 12/09/17 10/16/18 10/14/18 Rx RX: cloNIDine [Catapres] 0.1 mg PO Q12HR #60 tablet 12/09/17 10/16/18 10/14/18 Rx RX: hydrALAZINE [Apresoline TAB] 100 mg PO TID #90 tab 12/09/17 10/16/18 10/14/18 Rx RX: Bisacodyl [Dulcolax tab] 10 mg PO DAILY PRN #10 tab 10/13/18 10/16/18 Rx RX: Aspirin EC [Aspirin Enteric 81 mg PO QDAY #30 tablet.dr 10/17/18 Unknown Rx Coated TAB] RX: Lidocaine [Lidocaine Pain 1 each TP 3XW PRN #14 adh..patch 10/18/18 Unknown Rx Relief] Active Medications: Generic Name Dose Route Start Last Admin Trade Name Sherie PRN Reason Stop Dose Admin Acetaminophen 650 mg 10/16/18 10:22 10/17/18 21:35 Tylenol PO 650 mg Q4H PRN Administration Pain MILD(1-3)/Fever >100.5/[place] Amlodipine Besylate 10 mg 10/16/18 11:00 10/17/18 09:18 Norvasc PO 10 mg QDAY DAYAMI Administration Bisacodyl 10 mg 10/16/18 10:22 Dulcolax [place] QDAY PRN Constipation unrelieved by MOM Clonidine HCl 0.1 mg 10/16/18 11:00 10/17/18 21:33 Catapres PO 0.1 mg Q12HR DAYAMI Administration Docusate Sodium 100 mg 10/16/18 22:00 10/17/18 22:08 Colace PO 100 mg BID DAYAMI Administration Epoetin Anupam 10,000 unit 10/16/18 11:31 10/16/18 14:50 Procrit IV 10,000 unit DEBBI PRN Administration hemodialysis Famotidine 10 mg 10/17/18 10:00 10/17/18 09:18 Pepcid PO 10 mg QDAY DAYAMI Administration Heparin Sodium (Porcine) 5,000 unit 10/16/18 11:00 10/17/18 22:54 Heparin SUB-Q 5,000 unit Q12H DAYAMI Administration Heparin Sodium (Porcine) 1,000 unit 10/16/18 11:31 Heparin 10,000 Units/10 Ml IV DEBBI PRN hemodialysis Hydralazine HCl 100 mg 10/16/18 14:00 10/17/18 21:35 Apresoline PO 100 mg TID DAYAMI Administration Hydralazine HCl 5 mg 10/16/18 10:22 Apresoline IV Q30MIN PRN SBP > 180 OR DBP > 100 Sodium Chloride 100 mls @ 999 mls/hr 10/17/18 09:30 Nacl 0.9% IV DEBBI PRN Hypotension Ondansetron HCl 4 mg 10/16/18 10:22 Zofran IV Q8H PRN N/V unrelieved by Emily Mcgill 8.6 mg 10/16/18 22:00 10/17/18 21:34 Senokot PO 8.6 mg Q12HR DAYAMI Administration
[2018-10-18] MEDS ORDERED: NACL 0.9% 100 ML IV PRN (09:00)
[2018-10-18] MEDS: PEPCID PO SCH (09:12)
[2018-10-18] MEDS: SENOKOT PO SCH (09:13)
[2018-10-18] MEDS: COLACE PO SCH (09:13)
[2018-10-18] MEDS: CATAPRES PO SCH (09:19)
[2018-10-18] MEDS: NORVASC PO SCH (09:19)
[2018-10-18] MEDS ORDERED: XYLOCAINE TOPICAL 2% 30ML TP ONE (10:00)
[2018-10-18] MEDS: HEPARIN SUB-Q SCH (10:02)
--- NOTE | 2018-10-18 10:12 | Progress Note ---
Assessment and Plan Fluid overload due to HD noncompliance End stage renal disease on hemodialysis Hyperkalemia, due to ESRD - s/p insulin/d50/NaHCO3/ kayexalate - Nephrology consulted for HD Abdominal pain, negative CT abdomen 2 days ago, tolerating diet, No N/V Anemia of CD, monitor H/h Hypertensive urgency - Patient started on amlodipine, hydralazine and clonidine - closely monitor Dialysis noncompliant - Patient is counseled about adherence to treatment, but she again refused her HD today DVT prophylaxis - Heparin Disposition - home with HH Subjective Date of service: 10/18/18 Principal diagnosis: end-stage renal disease Interval history: Pt seen and examined refused HD b/o back pain, tolerating diet No N/v Objective - Exam Narrative Exam: General appearance: Present: no acute distress, well-nourished - EENT Eyes: Present: PERRL ENT: hearing intact, clear oral mucosa - Neck Neck: Present: supple, normal ROM - Respiratory Respiratory effort: normal Respiratory: bilateral: CTA - Cardiovascular Heart Sounds: Present: S1 & S2. Absent: rub, click - Extremities Extremities: pulses symmetrical, No edema Peripheral Pulses: within normal limits - Abdominal General gastrointestinal: Present: soft, tender, non-distended, normal bowel sounds Localized gastrointestinal: tender: diffuse Female genitourinary: Present: normal - Integumentary Integumentary: Present: clear, warm, dry - Musculoskeletal Musculoskeletal: gait normal, strength equal bilaterally - Psychiatric Psychiatric: appropriate mood/affect, intact judgment & insight - Neurologic Neurologic: CNII-XII intact, moves all extremities - Constitutional Vitals: Vital Signs - 12hr 10/18/18 10/18/18 10/18/18 03:00 07:37 08:05 Temperature 97.3 F L Pulse Rate 72 Respiratory 18 Rate Blood Pressure 141/66 O2 Sat by Pulse 100 95 99 Oximetry 10/18/18 09:19 Temperature Pulse Rate 72 Respiratory Rate Blood Pressure 141/66 O2 Sat by Pulse Oximetry - Labs CBC & Chem 7: 10/16/18 08:30 10/17/18 02:49 Labs: Abnormal lab results 10/17/18 Range/Units 17:44 Troponin T 0.141 H* D (0.00-0.029) ng/mL
[2018-10-18] MEDS: PROCRIT IV PRN (12:00)
[2018-10-18] MEDS ORDERED: MIRALAX 3350 PO ONE (12:00)
[2018-10-18] MEDS ORDERED: NACL 0.9 (PRIMING MACHINE ONLY DIALYSIS) MC ONE (13:07)
[2018-10-18] MEDS: TYLENOL PO PRN ×2 (14:20→18:16)
[2018-10-18 15:03] VITALS: BP 147/69
== END 2018-10-18 19:12 | disposition home health service (06) | DRG 640 ==
LOC: ED 03:09 → 2B-ACE 09:49
PROVIDERS: ADMIT Internal Medicine; ATTEND Internal Medicine
PROC: 5A1D70Z Performance of Urinary Filtration, Intermittent, Less than 6 Hours Per Day (ICD-10-PCS; principal; 2018-10-16)
PROC: 5A1D70Z Performance of Urinary Filtration, Intermittent, Less than 6 Hours Per Day (ICD-10-PCS; 2018-10-18)
DX: E87.5 Hyperkalemia (principal); N18.6 End stage renal disease; I12.0 Hypertensive chronic kidney disease with stage 5 chronic kidney disease or end stage renal disease; E87.70 Fluid overload, unspecified; R10.9 Unspecified abdominal pain; I16.0 Hypertensive urgency; E11.22 Type 2 diabetes mellitus with diabetic chronic kidney disease; E87.2 Acidosis; Z91.15 Patient's noncompliance with renal dialysis; Z71.89 Other specified counseling; Z88.6 Allergy status to analgesic agent; Z95.828 Presence of other vascular implants and grafts; Z99.2 Dependence on renal dialysis; Z79.4 Long term (current) use of insulin
CPT/HCPCS: 36415; 71045; 74018; 80048; 80053; 80061; 81001; 82140; 82550; 82553; 82962; 83690; 83735; 83880; 84484; 85027; 85610; 85730; 86850; 86900; 86901; 87040; 87086; 87116; 93005; 93010; G0378; J0885; J1644; J1815; J1940; J2270; J2405; J7030; Q0162